=== PATIENT | female | born 1970 | race African-American/Black ===

== ENCOUNTER 2016-06-07 05:49 | Emergency (ER) | payer OTHER ==
--- NOTE | 2016-06-07 07:39 | ER Document Report ---
HPI - HPI Patient complains to provider of: cold symptoms Onset: Other - 5 days Onset/Duration: Persistent Quality of pain: Achy Pain Level: 3 Context: Patient presents with a five-day history of cough, congestion, sore throat and voice hoarseness. Patient denies any fever. 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 Associated Symptoms: Body/muscle aches, Chills, Nonproductive cough, Rhinnorhea , Sore throat. denies: Chest pain, Fever, Shortness of breath Exacerbated by: Denies Relieved by: Denies Similar symptoms previously: Yes Recently seen / treated by doctor: No - ROS ROS below otherwise negative: Yes Systems Reviewed and Negative: Yes All other systems reviewed and negative - CONSTITUTIONAL Constitutional: REPORTS: Chills. DENIES: Fever - EENT EENT: REPORTS: Sore Throat, Nasal Drainage-Clear, Congestion - CARDIOVASCULAR Cardiovascular: DENIES: Chest pain - RESPIRATORY Respiratory: REPORTS: Coughing. DENIES: Trouble Breathing - GASTROINTESTINAL Gastrointestinal: DENIES: Abdominal Pain, Nausea, Patient vomiting, Diarrhea - REPRODUCTIVE LMP: 2 Reproductive: DENIES: : - MUSCULOSKELETAL Musculoskeletal: DENIES: Extremity pain, Back Pain, Neck Pain - DERM Skin Color: Normal Skin Problems: None Past Medical History - General Information source: Patient - Social History Smoking Status: Never Smoker Chew tobacco use (# tins/day): No Frequency of alcohol use: None Drug Abuse: None Occupation: prison Family History: Arthritis, CAD, CVA, DM, Hyperlipidemia, Hypertension, Malignancy Patient has suicidal ideation: No Patient has homicidal ideation: No - Past Medical History Cardiac Medical History: Reports: Hx Hypercholesterolemia Denies: Hx Heart Attack, Hx Hypertension Pulmonary Medical History: Denies: Hx Asthma, Hx Bronchitis, Hx COPD, Hx Pneumonia Neurological Medical History: Denies: Hx Cerebrovascular Accident, Hx Seizures Endocrine Medical History: Reports: Hx Diabetes Mellitus Type 2 Renal/ Medical History: Denies: Hx Peritoneal Dialysis Musculoskeltal Medical History: Denies Hx Arthritis Skin Medical History: Reports Hx Cellulitis, Reports Hx MRSA Infectious Medical History: Reports: Hx MRSA Surgical Hx: Negative - Immunizations Immunizations up to date: Yes Hx Diphtheria, Pertussis, Tetanus Vaccination: Yes Hx Pneumococcal Vaccination: 12/23/09 Vertical Provider Document - CONSTITUTIONAL Agree With Documented VS: Yes Exam Limitations: No Limitations General Appearance: WD/WN, No Apparent Distress - INFECTION CONTROL TRAVEL OUTSIDE OF THE [place] IN LAST 30 DAYS: No - HEENT HEENT: Atraumatic, Normocephalic, Pharyngeal Tenderness, Pharyngeal Erythema. negative: Pharyngeal Exudate, Tympanic Membrane Red, Tympanic Membrane Bulging - NECK Neck: Normal Inspection, Supple. negative: Lymphadenopathy-Left, Lymphadenopathy-Right - RESPIRATORY Respiratory: No Respiratory Distress, Chest Non-Tender, Other - dry cough. negative: Rales, Rhonchi, Wheezing O2 Sat by Pulse Oximetry: 99 - CARDIOVASCULAR Cardiovascular: Regular Rate, Regular Rhythm, No Murmur - BACK Back: Normal Inspection. negative: CVA Tenderness-Right, CVA Tenderness-Left - MUSCULOSKELETAL/EXTREMETIES Musculoskeletal/Extremeties: NITHIN ACOSTA - NEURO Level of Consciousness: Awake, Alert, Appropriate - DERM Integumentary: Warm, Dry, No Rash Course - Re-evaluation Re-evalutation: 06/07/16 09:15 Discussed worsening signs or symptoms that patient should return immediately for. Patient verbalized understanding and agrees with plan of care. - Vital Signs Vital signs: Temp Pulse Resp BP Pulse Ox 97.9 F 86 16 126/63 H 99 06/07/16 05:57 06/07/16 05:57 06/07/16 06:10 06/07/16 05:57 06/07/16 05:57 - Laboratory Laboratory results interpreted by me: 06/07/16 09:15 Labs- Entire Visit 06/07/16 07:30 Group A Strep Rapid NEGATIVE - Diagnostic Test Radiology reviewed: Reports reviewed Discharge - Discharge Clinical Impression: Sore throat Upper respiratory infection Qualifiers: URI type: unspecified URI Qualified Code(s): J06.9 - Acute upper respiratory infection, unspecified Condition: Stable Disposition: HOME, SELF-CARE Instructions: Acetaminophen, Upper Respiratory Illness ([facility]), Sore Throat ([facility]) Additional Instructions: Return immediately for any new or worsening symptoms Followup with your primary care provider, call tomorrow to make a followup appointment Prescriptions: Benzonatate [Tessalon Perle 100 mg Capsule] 100 mg PO Q8HP PRN #20 cap PRN Reason: Guaifenesin/Pseudoephedrne HCl [Mucinex D ER Tablet] 1 each PO Q12 PRN #12 tab.er.12h PRN Reason: Naproxen [Naprosyn 250 Nmg Tablet] 1 tab PO BID #14 tablet Forms: Return to Work Referrals: CALIN BRUNNER NP [Primary Care Provider] - Follow up tomorrow
[2016-06-07 09:31] VITALS: BP 132/64
== END 2016-06-07 09:20 | disposition home or self-care (01) ==
LOC: ER 05:49
DX: J02.9 Acute pharyngitis, unspecified (principal); J06.9 Acute upper respiratory infection, unspecified; M79.1 Myalgia; E78.00 Pure hypercholesterolemia, unspecified; E11.9 Type 2 diabetes mellitus without complications; Z86.14 Personal history of Methicillin resistant Staphylococcus aureus infection
CPT/HCPCS: 71020; 87070; 87880; 99283

== ENCOUNTER 2016-12-20 07:54 | Outpatient (CLI) | payer OTHER ==
[~2016-12-20 07:54] MED LIST: IRON DEXTRAN COMPLEX 25 MG in NORMAL SALINE 100 ML IV PRN; IRON DEXTRAN COMPLEX 25 MG in SYRINGE, DISPOSABLE, 1 EACH IV PRN; IRON DEXTRAN COMPLEX 975 MG in NORMAL SALINE 500 ML IV PRN; IRON DEXTRAN INJ 100 MG/2 ML VIAL IV PRN; NORMAL SALINE 250 ML IV PRN
[2016-12-20] MEDS ORDERED: NORMAL SALINE IV PRN (08:15)
[2016-12-20] MEDS ORDERED: IRON DEXTRAN COMPLEX IV PRN (08:15)
[2016-12-20 09:32] VITALS: BP 150/87
== END 2016-12-20 11:41 | disposition home or self-care (01) ==
LOC: II 07:54 → 5TH 07:57 → II 11:41
PROVIDERS: ATTEND Internal Medicine
PROC: 3E033GC Introduction of Other Therapeutic Substance into Peripheral Vein, Percutaneous Approach (ICD-10-PCS; principal; 2016-12-20)
DX: D50.0 Iron deficiency anemia secondary to blood loss (chronic) (principal)
CPT/HCPCS: 96365; 96366; J1750; J7040; J3490

== ENCOUNTER 2017-08-12 09:23 | Emergency (ER) | payer OTHER ==
[2017-08-12] MEDS ORDERED: ONDANSETRON 4 MG TAB.RAPDIS PO ONE (09:38)
[2017-08-12] MEDS ORDERED: ASPIRIN 81 MG TABLET, CHEWABLE PO ONE (09:38)
[2017-08-12] MEDS ORDERED: NITROGLYCERIN 0.4 MG/TAB 25 TAB/BOTTLE SL PRN (09:40)
--- NOTE | 2017-08-12 09:40 | ER Document Report ---
ED Medical Screen (RME) - General Chief Complaint: Chest Pain Stated Complaint: CHEST PAIN Time Seen by Provider: 08/12/17 09:35 Notes: RAPID MEDICAL EVALUATION DISCLOSURE I have seen this patient as part of a Rapid Medical Evaluation and, if applicable, placed any initially appropriate orders. The patient will be seen and fully evaluated, including a full history and physical exam, by a provider ( in Main ED or Fast Track) when a room becomes available. 47-year-old female here with complaints of midsternal and lower sternal chest heaviness shortness of breath diaphoresis lightheadedness and nausea vomiting that started approximately 5-6 hours ago. The symptoms woke her up out of sleep. The pain is worse with lying flat. Pain is also worse with breathing but not exertion. She tried Tylenol with minimal relief. She currently has some of the chest heaviness. She denies any extremity swelling or prior history of DVT/PE. She does note that she had a [address] ride to [place] 2 months ago. TRAVEL OUTSIDE OF THE [place] IN LAST 30 DAYS: No - Related Data Allergies/Adverse Reactions: No Known Allergies Allergy (Verified 12/22/13 00:40) Past Medical History - Past Medical History Cardiac Medical History: Reports: Hx Coronary Artery Disease - cholesterol, Hx Hypercholesterolemia Denies: Hx Heart Attack, Hx Hypertension Pulmonary Medical History: Denies: Hx Asthma, Hx Bronchitis, Hx COPD, Hx Pneumonia Neurological Medical History: Denies: Hx Cerebrovascular Accident, Hx Seizures Endocrine Medical History: Reports: Hx Diabetes Mellitus Type 2 Renal/ Medical History: Denies: Hx Peritoneal Dialysis Musculoskeltal Medical History: Denies Hx Arthritis Skin Medical History: Reports Hx Cellulitis, Reports Hx MRSA Infectious Medical History: Reports: Hx MRSA Past Surgical History: Denies: Hx Hysterectomy - Immunizations Immunizations up to date: Yes Hx Diphtheria, Pertussis, Tetanus Vaccination: Yes Physical Exam - Vital signs Vitals: Temp Pulse Resp BP Pulse Ox 98.7 F 78 18 145/83 H 100 08/12/17 09:26 08/12/17 09:26 08/12/17 09:26 08/12/17 09:26 08/12/17 09:26 Course - Vital Signs Vital signs: Temp Pulse Resp BP Pulse Ox 98.7 F 78 18 145/83 H 100 08/12/17 09:26 08/12/17 09:26 08/12/17 09:26 08/12/17 09:26 08/12/17 09:26
--- NOTE | 2017-08-12 10:12 | RADIOLOGY REPORT (SQ) ---
EXAM DESCRIPTION: CHEST 2 VIEWS COMPLETED DATE/TIME: 08/12/2017 9:51 am REASON FOR STUDY: CP SOB COMPARISON: May 2016 EXAM PARAMETERS: NUMBER OF VIEWS: two views TECHNIQUE: Digital Frontal and Lateral radiographic views of the chest acquired. RADIATION DOSE: NA LIMITATIONS: none FINDINGS: LUNGS AND PLEURA: No opacities, masses or pneumothorax. No pleural effusion. MEDIASTINUM AND HILAR STRUCTURES: No masses or contour abnormalities. HEART AND VASCULAR STRUCTURES: Heart normal size. No evidence for failure. BONES: No acute findings. HARDWARE: None in the chest. OTHER: No other significant finding. IMPRESSION: NO ACUTE RADIOGRAPHIC FINDING IN THE CHEST. TECHNICAL DOCUMENTATION: JOB ID: [id number] [employer]- All Rights Reserved Reading location - IP/workstation name: [email or web address]
[2017-08-12 10:20] LABS: ABSOLUTE EOSINOPHILS # (AUTO) 0.1 10^3/uL (0.0-0.6); ABSOLUTE LYMPHOCYTES (AUTO) 0.9 10^3/uL (0.5-4.7); ABSOLUTE MONOCYTES (AUTO) 0.5 10^3/uL (0.1-1.4); ABSOLUTE NEUT (AUTO) 6.8 10^3/uL (1.7-8.2); BASOPHILS % (AUTO) 0.4 % (0-2); EOSINOPHILS % (AUTO) 1.6 % (0-6); HEMATOCRIT 34.3 % (36.0-47.0); HEMOGLOBIN 10.8 g/dL (12.0-15.5); LYMPHOCYTES % (AUTO) 10.7 % (13-45); MEAN CORPUSCULAR HEMOGLOBIN 24.8 pg (27.0-33.4); MEAN CORPUSCULAR HGB CONC 31.4 g/dL (32.0-36.0); MEAN CORPUSCULAR VOLUME 79 fl (80-97); MONOCYTES % (AUTO) 5.8 % (3-13); PLATELET COUNT 439 10^3/uL (150-450); RED BLOOD COUNT 4.35 10^6/uL (3.72-5.28); RED CELL DISTRIBUTION WIDTH 14.8 % (11.5-14.0); SEGMENTED NEUTROPHILS % (AUTO) 81.5 % (42-78); TOTAL CELLS COUNTED % (AUTO) 100 %; WHITE BLOOD COUNT 8.3 10^3/uL (4.0-10.5)
[2017-08-12] MEDS ORDERED: MAG HYDROX/AL HYDROX/SIMETH SUSP 30 ML UDCUP PO ONE (10:27)
[2017-08-12] MEDS ORDERED: METOCLOPRAMIDE HCL ORAL SOLN 10 MG/10 ML UDCUP PO ONE (10:27)
[2017-08-12] MEDS ORDERED: LIDOCAINE 2% VISCOUS SOLN 20 ML UDCUP PO ONE (10:27)
--- NOTE | 2017-08-12 10:37 | ER Document Report ---
ED General - General Chief Complaint: Chest Pain Stated Complaint: CHEST PAIN Time Seen by Provider: 08/12/17 09:35 TRAVEL OUTSIDE OF THE [place] IN LAST 30 DAYS: No - HPI Notes: 47-year-old female history of high cholesterol and "borderline" diabetes for which she controls with diet who presents with chest pain. Patient states she was awoken from sleep around 4 AM with a vague poorly described substernal chest heaviness. Initially said that it hurt worse when breathing but then later stated that it did not change much. No fever, chills or sweats, mild cough. No dyspnea. No use of exogenous estrogens. No lower extremity pain or swelling. No personal or family history of venous thromboembolic disease. Uncertain whether she has any first-degree relatives with a history of ACS but states that her mother had "heart failure" and in her early 50s. She has not had stress testing in the past. No other modifying factors, no other associated symptoms, no other provocative or palliative factors. - Related Data Allergies/Adverse Reactions: No Known Allergies Allergy (Verified 12/22/13 00:40) Past Medical History - Social History Smoking Status: Never Smoker Chew tobacco use (# tins/day): No Frequency of alcohol use: None Drug Abuse: None Family History: Arthritis, CAD, CVA, DM, Hyperlipidemia, Hypertension, Malignancy Patient has suicidal ideation: No Patient has homicidal ideation: No - Past Medical History Cardiac Medical History: Reports: Hx Hypercholesterolemia Denies: Hx Heart Attack, Hx Hypertension Pulmonary Medical History: Denies: Hx Asthma, Hx Bronchitis, Hx COPD, Hx Pneumonia Neurological Medical History: Denies: Hx Cerebrovascular Accident, Hx Seizures Endocrine Medical History: Reports: Hx Diabetes Mellitus Type 2 Renal/ Medical History: Denies: Hx Peritoneal Dialysis Musculoskeltal Medical History: Denies Hx Arthritis Skin Medical History: Reports Hx Cellulitis, Reports Hx MRSA Infectious Medical History: Reports: Hx MRSA Past Surgical History: Denies: Hx Hysterectomy - Immunizations Immunizations up to date: Yes Hx Diphtheria, Pertussis, Tetanus Vaccination: Yes Hx Pneumococcal Vaccination: 12/23/09 Review of Systems - Review of Systems Notes: Review of systems as in the history of present illness, otherwise negative. Physical Exam - Vital signs Vitals: Temp Pulse Resp BP Pulse Ox 98.7 F 78 18 145/83 H 100 08/12/17 09:26 08/12/17 09:26 08/12/17 09:26 08/12/17 09:26 08/12/17 09:26 - Notes Notes: General: Well developed . HEENT: Normocephalic, atraumatic. Pupils equal round reactive to light. No JVD. Chest: No trauma. Respiratory: Good air exchange, normal excursion. Cardiac: Regular rhythm. No murmurs or gallops. Abdomen: Soft, benign. Nondistended. Nontender. Back: No asymmetry or gross abnormality. Motor: Grossly normal power and tone. Neurologic: Alert, nonfocal. Cranial nerves II-12 are intact. Sensation intact. Vascular: Well perfused. Normal peripheral pulses. Skin: No petechiae or purpura. Course - Re-evaluation Re-evalutation: 08/12/17 10:37 Relatively well-appearing female with chest pain, certainly consider ACS, esophageal spasm or reflux, atypical chest pain. She is PE RC negative, would not pursue further workup for venous thromboembolic disease. Less likely pneumonia or pneumothorax. Plan to proceed with labs, analgesics, reassess. 08/12/17 12:38 Patient has done well throughout her ED course, is pain-free. She later indicated it was more of a lower epigastric and lower chest discomfort. I have a strong suspicion this may be related to GERD or reflux. Patient has a relatively low heart score of 3. Believe she is safe for discharge home, will follow close with the primary care physician tomorrow, return if worsening. Discharged home with prescription for Pepcid. ECG shows no evidence of acute ischemia. Labs are reviewed, CBC normal, biomarkers normal, d-dimer normal. 12 Lead ECG Analysis A 12 lead ECG is obtained and shows a sinus rhythm, normal QRS, normal QTC. There are no acute ischemic changes - Vital Signs Vital signs: Temp Pulse Resp BP Pulse Ox 98.7 F 78 18 145/83 H 100 08/12/17 09:26 08/12/17 09:26 08/12/17 09:26 08/12/17 09:26 08/12/17 09:26 - Laboratory Result Diagrams: 08/12/17 09:55 08/12/17 09:55 Laboratory results interpreted by me: 08/12/17 08/12/17 09:55 09:55 Hgb 10.8 L Hct 34.3 L MCV 79 L MCH 24.8 L MCHC 31.4 L RDW 14.8 H Seg Neutrophils % 81.5 H Lymphocytes % 10.7 L Glucose 114 H Discharge - Discharge Clinical Impression: Chest pain Qualifiers: Chest pain type: unspecified Qualified Code(s): R07.9 - Chest pain, unspecified Condition: Good Disposition: HOME, SELF-CARE Instructions: Chest Pain of Unclear Cause ([facility]) Additional Instructions: See regular doctor within 24 hrs Prescriptions: Famotidine [Pepcid 40 mg Tablet] 40 mg PO QHS 30 Days tablet Referrals: CALIN BRUNNER PIPE OR STEAM FITTER FURNACE INSTALLER [Primary Care Provider] - Follow up as needed
[2017-08-12 10:44] LABS: ALANINE AMINOTRANSFERASE 35 U/L (9-52); ALBUMIN 4.4 g/dL (3.5-5.0); ALKALINE PHOSPHATASE 78 U/L (38-126); ANION GAP 13 (5-19); ASPARTATE AMINO TRANSFERASE 33 U/L (14-36); BILIRUBIN,DIRECT 0.3 mg/dL (0.0-0.4); BILIRUBIN,TOTAL 0.3 mg/dL (0.2-1.3); BLOOD UREA NITROGEN 7 mg/dL (7-20); CALCIUM 9.7 mg/dL (8.4-10.2); CARBON DIOXIDE 27 mmol/L (22-30); CHLORIDE 101 mmol/L (98-107); GLUCOSE 114 mg/dL (75-110); LIPASE 178.8 U/L (23-300); POTASSIUM 3.9 mmol/L (3.6-5.0); SODIUM 141.3 mmol/L (137-145)
[2017-08-12 12:43] VITALS: BP 124/77
--- NOTE | 2017-08-13 07:40 | EKG REPORT ---
SEVERITY:- NORMAL ECG - SINUS RHYTHM : Confirmed by: Derek Mcnally MD 13-Aug-2017 07:38:17
== END 2017-08-12 12:52 | disposition home or self-care (01) ==
LOC: ER 09:23
DX: R07.89 Other chest pain (principal); R19.8 Other specified symptoms and signs involving the digestive system and abdomen
CPT/HCPCS: 93005; 99285; 36415; 83690; 85025; 80053; 84484; 85379; 71046; 93010; S0119; J3490

== ENCOUNTER → 2019-08-19 | Outpatient (CLI) | payer OTHER ==
--- NOTE | 2019-08-19 12:11 | WOMENS IMAGING REPORT ---
EXAM DESCRIPTION: 3D SCREENING MAMMO BILAT IMAGES COMPLETED DATE/TIME: 08/19/2019 9:41 am REASON FOR STUDY: Z12.31 SCREENING MAMMO Z12.31 ENCNTR SCREEN MAMMOGRAM FOR MALIGNANT NEOPLASM OF B RE COMPARISON: Multiple since 2012 EXAM PARAMETERS: Views: Standard craniocaudal and mediolateral oblique views of each breast recorded using digital acquisition and breast tomosynthesis. Read with the assistance of CAD. .[facility] - cookdinner Associate Professor Of Communication Version 9.2 LIMITATIONS: None. FINDINGS: No suspicious masses, suspicious calcifications or architectural distortion. No areas of c oncern. IMPRESSION: NEGATIVE MAMMOGRAM. BIRADS 1. BREAST DENSITY: a. The breasts are almost entirely fatty. BIRAD: ASSESSMENT: 1 NEGATIVE RECOMMENDATION: ROUTINE SCREENING COMMENT: The patient has been notified of the results by letter per MQSA requirements. Additional no tification policies are in place for contacting patient with suspicious or incomplete findings. Quality ID #[id number]: The [employer] recommends an annual screening mammogram for women aged 40 years or over. This facility utilizes a reminder system to ensure that all patients receive reminder letters, and/or direct phone calls for appointments. This includes reminders for routine scr eening mammograms, diagnostic mammograms, or other Breast Imaging Interventions when appropriate. Th is patient will be placed in the appropriate reminder system. TECHNICAL DOCUMENTATION: FINDING NUMBER: (1) ASSESSMENT: (1) JOB ID: [id number] 2010 [employer]- All Rights Reserved Reading location - IP/workstation name: [email or web address]
== END ==
LOC: WI 09:00
PROVIDERS: ATTEND Nurse Practitioner Primary Care
DX: Z12.31 Encounter for screening mammogram for malignant neoplasm of breast (principal)
CPT/HCPCS: 77063; 77067

== ENCOUNTER 2019-08-24 18:11 | Inpatient (IN) | payer OTHER ==
--- NOTE | 2019-08-24 18:35 | ER Document Report ---
ED Medical Screen (RME) - General Chief Complaint: Chest Pain Stated Complaint: CHEST PAIN Time Seen by Provider: 08/24/19 18:28 Primary Care Provider: CALIN BRUNNER NP [Primary Care Provider] - Follow up as needed Mode of Arrival: Ambulatory Information source: Patient Notes: 49-year-old female patient presenting to the emergency department 2-day history of chest pain. Patient reports pain feels like a pressure in the middle of her chest but radiates down into her abdomen. Does not radiate anywhere else. She reports associated nausea with vomiting. She also reports associated shortness of breath and diaphoresis. She does have a history of acid reflux, states this does not feel the same. Heart sounds S1-S2 present, no ectopy noted. Lung sounds clear and equal bilaterally. I have greeted and performed a rapid initial assessment of this patient. A comprehensive ED assessment and evaluation of the patient, analysis of test results and completion of the medical decision making process will be conducted by additional ED providers. I have specifically instructed the patient or family members with the patient to immediately return to any nursing staff should anything change in the patient's condition or with their chief complaint. TRAVEL OUTSIDE OF THE [place] IN LAST 30 DAYS: No - Related Data Allergies/Adverse Reactions: No Known Allergies Allergy (Verified 08/24/19 18:28) Past Medical History - Social History Frequency of alcohol use: None Drug Abuse: None - Past Medical History Cardiac Medical History: Reports: Hx Coronary Artery Disease - cholesterol, Hx Hypercholesterolemia Denies: Hx Heart Attack, Hx Hypertension Pulmonary Medical History: Denies: Hx Asthma, Hx Bronchitis, Hx COPD, Hx Pneumonia Neurological Medical History: Denies: Hx Cerebrovascular Accident, Hx Seizures Endocrine Medical History: Reports: Hx Diabetes Mellitus Type 2 Renal/ Medical History: Denies: Hx Peritoneal Dialysis Musculoskeltal Medical History: Denies Hx Arthritis Skin Medical History: Reports Hx Cellulitis, Reports Hx MRSA Infectious Medical History: Reports: Hx MRSA Past Surgical History: Denies: Hx Hysterectomy - Immunizations Immunizations up to date: Yes Hx Diphtheria, Pertussis, Tetanus Vaccination: Yes Physical Exam - Vital signs Vitals: Temp Pulse Resp BP Pulse Ox 98.9 F 104 H 20 127/71 H 100 08/24/19 18:25 08/24/19 18:25 08/24/19 18:25 08/24/19 18:25 08/24/19 18:25 Course - Vital Signs Vital signs: Temp Pulse Resp BP Pulse Ox 98.9 F 104 H 20 127/71 H 100 08/24/19 18:28 08/24/19 18:25 08/24/19 18:25 08/24/19 18:25 08/24/19 18:25 Doctor's Discharge - Discharge Referrals: CALIN BRUNNER HOSPICE NURSE PRACTITIONER [Primary Care Provider] - Follow up as needed
[2019-08-24 19:07] LABS: HEMATOCRIT 35.5 % (36.0-47.0); HEMOGLOBIN 11.3 g/dL (12.0-15.5); MEAN CORPUSCULAR HEMOGLOBIN 25.8 pg (27.0-33.4); MEAN CORPUSCULAR HGB CONC 31.9 g/dL (32.0-36.0); MEAN CORPUSCULAR VOLUME 81 fl (80-97); PLATELET COUNT 362 10^3/uL (150-450); RED BLOOD COUNT 4.39 10^6/uL (3.72-5.28); RED CELL DISTRIBUTION WIDTH 14.5 % (11.5-14.0); WHITE BLOOD COUNT 19.6 10^3/uL (4.0-10.5)
--- NOTE | 2019-08-24 19:10 | RADIOLOGY REPORT (SQ) ---
EXAM DESCRIPTION: CHEST 2 VIEWS IMAGES COMPLETED DATE/TIME: 08/24/2019 7:02 pm REASON FOR STUDY: chest pain COMPARISON: 08/12/2017 EXAM PARAMETERS: NUMBER OF VIEWS: two views TECHNIQUE: Digital Frontal and Lateral radiographic views of the chest acquired. RADIATION DOSE: NA LIMITATIONS: none FINDINGS: LUNGS AND PLEURA: No opacities, masses or pneumothorax. No pleural effusion. MEDIASTINUM AND HILAR STRUCTURES: No masses or contour abnormalities. HEART AND VASCULAR STRUCTURES: Heart normal size. No evidence for failure. BONES: No acute findings. HARDWARE: None in the chest. OTHER: No other significant finding. IMPRESSION: NO ACUTE RADIOGRAPHIC FINDING IN THE CHEST. TECHNICAL DOCUMENTATION: JOB ID: [id number] 2010 [employer]- All Rights Reserved Reading location - IP/workstation name: [email or web address]
[2019-08-24 19:24] LABS: ABSOLUTE LYMPHOCYTES# (MANUAL) 1.4 10^3/uL (0.5-4.7); ABSOLUTE MONOCYTES # (MANUAL) 0.6 10^3/uL (0.1-1.4); BASOPHILS % (MANUAL) 0 % (0-2); EOSINOPHILS % (MANUAL) 0 % (0-6); LYMPHOCYTES % (MANUAL) 7 % (13-45); MONOCYTES % (MANUAL) 3 % (3-13); SEGMENTED NEUTROPHILS % (MAN) 90 % (42-78); TOTAL CELLS COUNTED 100
[2019-08-24 19:25] LABS: ALBUMIN 4.1 g/dL (3.5-5.0); ALKALINE PHOSPHATASE 113 U/L (38-126); ANION GAP 13 (5-19); ASPARTATE AMINO TRANSFERASE 56 U/L (14-36); BILIRUBIN,DIRECT 0.3 mg/dL (0.0-0.4); BILIRUBIN,TOTAL 1.1 mg/dL (0.2-1.3); BLOOD UREA NITROGEN 18 mg/dL (7-20); CALCIUM 9.5 mg/dL (8.4-10.2); CARBON DIOXIDE 25 mmol/L (22-30); CHLORIDE 97 mmol/L (98-107); GLUCOSE 180 mg/dL (75-110); POTASSIUM 3.2 mmol/L (3.6-5.0); TOTAL PROTEIN 8.1 g/dL (6.3-8.2)
[2019-08-24 19:27] LABS: ANISOCYTOSIS SLIGHT; OVALOCYTES SLIGHT; PLATELET COMMENT ADEQUATE; POIKILOCYTOSIS SLIGHT
--- NOTE | 2019-08-24 19:52 | ER Document Report ---
ED Cardiac - General Chief Complaint: Chest Pain Stated Complaint: CHEST PAIN Time Seen by Provider: 08/24/19 18:28 Primary Care Provider: CALIN BRUNNER NP [Primary Care Provider] - Follow up as needed Mode of Arrival: Ambulatory Information source: Patient TRAVEL OUTSIDE OF THE [place] IN LAST 30 DAYS: No - HPI Notes: Patient presents complaining of substernal chest pain. She states this pain is been going on for 2 to 3 days. Nothing makes it better or worse. It last for minutes at a time she states. She also has some abdominal soreness. She states she had one episode of vomiting on Saturday but none since. She has had some nausea. Today she had an episode of dizziness cold sweats and shortness of breath with the pain. She states she is never had any type of cardiac evaluation. No previous history of surgeries. She states she has high cholesterol but she does not have any diabetes or high blood pressure. She states that she does not take any type of hormones. She does not smoke. She has never had a DVT or pulmonary embolism. She denies any abdominal surgeries. She denies any family history of heart disease. No family history of DVTs or PEs known. Nothing makes the pain better or worse. The pain does not radiate. It is mild to moderate in intensity. - Related Data Allergies/Adverse Reactions: No Known Allergies Allergy (Verified 08/24/19 18:28) Past Medical History - General Information source: Patient - Social History Smoking Status: Never Smoker Frequency of alcohol use: None Drug Abuse: None Family History: Arthritis, CAD, CVA, DM, Hyperlipidemia, Hypertension, Malignancy Patient has homicidal ideation: No - Past Medical History Cardiac Medical History: Reports: Hx Coronary Artery Disease - cholesterol, Hx Hypercholesterolemia Denies: Hx Heart Attack, Hx Hypertension Pulmonary Medical History: Denies: Hx Asthma, Hx Bronchitis, Hx COPD, Hx Pneumonia Neurological Medical History: Denies: Hx Cerebrovascular Accident, Hx Seizures Endocrine Medical History: Reports: Hx Diabetes Mellitus Type 2 Renal/ Medical History: Denies: Hx Peritoneal Dialysis Musculoskeletal Medical History: Denies Hx Arthritis Skin Medical History: Reports Hx Cellulitis, Reports Hx MRSA Infectious Medical History: Reports: Hx MRSA Past Surgical History: Denies: Hx Hysterectomy - Immunizations Immunizations up to date: Yes Hx Diphtheria, Pertussis, Tetanus Vaccination: Yes Hx Pneumococcal Vaccination: 12/23/09 Review of Systems - Review of Systems Constitutional: denies: Chills, Fever Cardiovascular: Chest pain. denies: Palpitations Respiratory: Short of breath. denies: Cough -: Yes All other systems reviewed and negative Physical Exam - Vital signs Vitals: Temp Pulse Resp BP Pulse Ox 98.9 F 104 H 20 127/71 H 100 08/24/19 18:25 08/24/19 18:25 08/24/19 18:25 08/24/19 18:25 08/24/19 18:25 Interpretation: Normal - General General appearance: Appears well, Alert - HEENT Head: Normocephalic, Atraumatic Eyes: Normal Pupils: PERRL - Respiratory Respiratory status: No respiratory distress Chest status: Nontender Breath sounds: Normal Chest palpation: Normal - Cardiovascular Rhythm: Regular - not tachy on exam Heart sounds: Normal auscultation Murmur: No - Abdominal Inspection: Normal Distension: No distension Bowel sounds: Normal Tenderness: Nontender Organomegaly: No organomegaly - Back Back: Normal, Nontender - Extremities General upper extremity: Normal inspection, Nontender, Normal color, Normal ROM, Normal temperature General lower extremity: Normal inspection, Nontender, Normal color, Normal ROM, Normal temperature, Normal weight bearing. No: Miguel's sign - Neurological Neuro grossly intact: Yes Cognition: Normal Orientation: AAOx4 [employer] [place] [place] Coma Scale Eye Opening: Spontaneous [employer] [place] Coma Scale Verbal: Oriented [place] Coma Scale Motor: Obeys Commands [place] Coma Scale Total: 15 Speech: Normal Motor strength normal: LUE, RUE, LLE, RLE Sensory: Normal - Psychological Associated symptoms: Normal affect, Normal mood - Skin Skin Temperature: Warm Skin Moisture: Dry Skin Color: Normal Course - Re-evaluation Re-evalutation: 08/24/19 21:38 Patient presents with epigastric and central chest pain. She has had some GI symptoms that consist of nausea and vomiting. She has not had significant symp toms that would suggest a respiratory infection. CT shows inflammation around the gallbladder with thick wall. She does have a white count of 19.6 thousand with some minimally elevated liver function test. The clinical picture does seem consistent with a possible cholecystitis. I have paged the surgicalist who will see the patient in consultation for admission. - Vital Signs Vital signs: Temp Pulse Resp BP Pulse Ox 98.9 F 104 H 20 105/72 97 08/24/19 18:28 08/24/19 18:25 08/24/19 21:00 08/24/19 20:01 08/24/19 21:00 - Laboratory Result Diagrams: 08/24/19 18:42 08/24/19 18:42 Laboratory results interpreted by me: 08/24/19 08/24/19 18:42 18:42 WBC 19.6 H Hgb 11.3 L Hct 35.5 L MCH 25.8 L MCHC 31.9 L RDW 14.5 H Seg Neuts % (Manual) 90 H Lymphocytes % (Manual) 7 L Abs Neuts (Manual) 17.6 H Sodium 134.9 L Potassium 3.2 L Chloride 97 L Creatinine 1.64 H Est GFR ( Amer) 40 L Est GFR (MDRD) Non-Af 33 L Glucose 180 H AST 56 H ALT 72 H - Diagnostic Test Radiology reviewed: Image reviewed, Reports reviewed - EKG Interpretation by Me EKG shows normal: Sinus rhythm Rate: Tachycardia - 102 Rhythm: NSR [place]/QRS: No: Right axis deviation, Left axis deviation Discharge - Discharge Clinical Impression: Acute cholecystitis Condition: Stable Disposition: ADMITTED INPATIENT Admitting Provider: Surgicalist Unit Admitted: Surgical Floor Referrals: CALIN BRUNNER NP [Primary Care Provider] - Follow up as needed
--- NOTE | 2019-08-24 21:24 | RADIOLOGY REPORT (SQ) ---
EXAM DESCRIPTION: Contrast-enhanced CT pulmonary angiogram of the chest. CLINICAL HISTORY: 49 years Female; cp/abd pain/sob/elev wbc TECHNIQUE: CT angiogram of the chest, abdomen and pelvis using intravenous contrast.. MIP reconstructions were performed. All CT scans at this facility use dose modulation, iterative reconstruction, and/or weight based dosing when appropriate to reduce radiation dose to as low as reasonably achievable. COMPARISON: None. FINDINGS: Chest: Vascular: Central pulmonary arteries are patent. No evidence of pulmonary embolism. Thoracic aorta is of normal caliber. No dissection or aneurysm. Great vessels are normal. Left vertebral artery arises directly from the aortic arch. Lungs: Subtle groundglass opacification is identified in the perihilar and lower lobes bilaterally in a dependent fashion posteriorly. Findings are nonspecific. No pleural effusion. No pneumothorax. No pulmonary nodules or masses. Mediastinum: In the left thyroid lobe is a heterogeneously enhancing mass measuring 2.9 cm. Heart size is normal. Small sliding hiatal hernia is present. No mediastinal or hilar lymphadenopathy. There is a small amount of soft tissue in the anterior mediastinum which may represent residual thymic tissue. Bones and soft tissues: Minimal endplate spondylosis in the thoracic spine. No destructive bone lesions. No acute fracture. Nonspecific axillary lymphadenopathy is seen bilaterally. In the right axilla lymph nodes measure 2 cm and in the left axilla lymph nodes measure up to 2.1 cm. ABDOMEN: Aorta: Normal. Celiac: Normal SMA: Normal Left renal: Normal Right renal: Normal BEKA: Normal Liver: Diffuse fatty infiltration of the liver is seen. There is heterogeneous enhancement in the liver adjacent to the gallbladder fossa and the gallbladder wall appears thickened. There is inflammation seen adjacent to the gallbladder. In the appropriate clinical scenario this would be consistent with acute cholecystitis. No biliary dilatation. Hepatic arteries are patent. Portal vein and hepatic veins are patent. No mass lesions. Pancreas:Within normal limits Spleen:Within normal limits Kidneys: Kidneys are normal in size shape and position. No stones or hydronephrosis. No acute process. Symmetric renal enhancement is identified. On delayed images there is symmetric contrast excretion. Adrenal glands:Within normal limits GI: The bowel is of normal caliber. No obstruction. No focal inflammation. appendix:The appendix appears normal. Abdominal wall: Unremarkable Retroperitoneal: No mass or lymphadenopathy General: No free air. No free fluid. Bones: No acute bone findings. Bladder: The bladder is mostly empty Pelvis: Possible small heterogeneously enhancing fibroid in the uterus and fundus. This area measures approximately 18 mm. PELVIS: Right iliacs: Common, internal and external iliac arteries are normal. Common femoral artery is normal. Left iliacs: Common, internal and external iliac arteries are normal. Comment subtle artery is normal. IMPRESSION: 1. Scattered subtle groundglass opacification in the perihilar and lower lobes. This is nonspecific. 2.2.9 cm incidental thyroid nodule. Recommend thyroid US. Reference: J Am Eddi Radiol. 2015 b;12(2): 143-50. 3. Nonspecific axillary lymphadenopathy. 4. No abnormality of the thoracic aorta or great vessels. 5. Marked fatty infiltration of the liver. 6. Abnormal appearance of the gallbladder suggesting acute cholecystitis. No biliary dilatation. 7. No vascular abnormality in the chest, abdomen or pelvis.
[2019-08-24] MEDS ORDERED: PIPERACILLIN/TAZOBACTAM 3.375 GM VIAL IV ONE (21:37)
[2019-08-24] MEDS ORDERED: NORMAL SALINE 1000 ML 1,000 ML IV ONE (21:38)
[2019-08-24 22:31] LABS: APPEARANCE,URINE TURBID; BILIRUBIN,URINE NEGATIVE (NEGATIVE); COLOR,URINE RED; GLUCOSE, URINE NEGATIVE (NEGATIVE); KETONES,URINE NEGATIVE (NEGATIVE); PROTEIN,URINE 100 mg/dL (NEGATIVE); URINE SPECIFIC GRAVITY 1.031
--- NOTE | 2019-08-24 22:34 | EKG REPORT ---
SEVERITY:- BORDERLINE ECG - SINUS TACHYCARDIA PROBABLE LEFT ATRIAL ABNORMALITY BORDERLINE T WAVE ABNORMALITIES : Confirmed by: Latoya Redman 24-Aug-2019 22:33:15
--- NOTE | 2019-08-24 22:56 | RADIOLOGY REPORT (SQ) ---
EXAM DESCRIPTION: US ABDOMEN LIMITED COMPLETED DATE/TME: 08/24/2019 21:50 CLINICAL HISTORY: 49 years, Female, ruq pain COMPARISON: Prior CT from earlier the same day. TECHNIQUE: Axial 2-D grayscale images of the abdomen were acquired. Doppler was utilized. LIMITATIONS: None. FINDINGS: Pancreas is obscured by overlying bowel gas artifact. Visualized portions of the abdominal aorta and IVC appear normal. Liver is diffusely echogenic. Antegrade flow is documented within the main portal vein. Liver length is 15.6 cm. No focal liver lesions. Gallbladder wall thickness measures 6 mm. Gallstones are noted. Sonographic Carcamo sign was negative. Common bile duct diameter measures 5 mm. Right kidney measures 9.9 x 5.1 x 5.4 cm in size. No gross evidence of hydronephrosis. IMPRESSION: Cholelithiasis with thickened gallbladder wall. Negative sonographic Carcamo sign. However, given the presence of pericholecystic inflammatory stranding seen on the recent CT performed earlier the same day, these findings are most suspicious for cholecystitis. Echogenic liver, suggestive of hepatic steatosis. copyright 2010 [facility] [employer]- All Rights Reserved
--- NOTE | 2019-08-24 23:58 | Progress Note ---
Provider Note Provider Note: Patient turned over to me pending ultrasound and repeat discussion with surgery. Ultrasound shows gallstones, thickened gallbladder wall, and pericholecystic fluid consistent with cholecystitis. Called Dr. Hutchins back with these findings and he is excepted her to his service and asked for her to be placed n.p.o. which I have ordered.
[2019-08-25] MEDS ORDERED: ONDANSETRON HCL INJ/PF 4 MG/2 ML SDV IV PRN ×2 (01:38→13:13)
[2019-08-25] MEDS ORDERED: GLUCAGON,HUMAN RECOMB 1 MG INJ SUBCUT PRN (01:39)
[2019-08-25] MEDS ORDERED: DEXTROSE 40% GEL 15 GM TUBE PO PRN ×2 (01:39)
[2019-08-25] MEDS ORDERED: DEXTROSE 5%-LACTATED RINGERS 1,000 ML IV PRN ×2 (01:39→01:47)
[2019-08-25] MEDS ORDERED: DEXTROSE 50%-WATER 25 GM/50 ML DISP.SYRIN IV PRN ×2 (01:39)
[2019-08-25] MEDS ORDERED: PIPERACILLIN/TAZOBACTAM 3.375 GM VIAL IV PRN (02:00)
[2019-08-25] MEDS ORDERED: PIPERACILLIN/TAZOBACTAM 3.375 GM VIAL IV ONE (04:47)
[2019-08-25] MEDS ORDERED: ROCURONIUM BROMIDE INJ 50 MG/5 ML VIAL IV ONE (05:00)
[2019-08-25] MEDS ORDERED: KETOROLAC TROMETHAMINE 60 MG/2 ML SDV ONE (05:00)
[2019-08-25] MEDS ORDERED: NEOSTIGMINE METHYLSULFATE 10 MG/10 ML VIAL ONE (05:00)
[2019-08-25] MEDS ORDERED: GLYCOPYRROLATE 1 MG/5 ML VIAL ONE (05:00)
[2019-08-25] MEDS ORDERED: ONDANSETRON HCL INJ/PF 4 MG/2 ML SDV ONE (05:00)
[2019-08-25] MEDS ORDERED: DEXAMETHASONE SOD PHOSPHATE INJ 4 MG/1 ML VIAL ONE (05:00)
[2019-08-25] MEDS: PIPERACILLIN SODIUM/TAZOBACTAM 3.375 GM in NORMAL SALINE 100 ML IV SCH ×4 (05:35→21:06)
[2019-08-25 05:38] LABS: ABSOLUTE EOSINOPHILS # (AUTO) 0.2 10^3/uL (0.0-0.6); ABSOLUTE NEUT (AUTO) 13.1 10^3/uL (1.7-8.2); BASOPHILS % (AUTO) 0.2 % (0-2); EOSINOPHILS % (AUTO) 1.2 % (0-6); HEMATOCRIT 29.8 % (36.0-47.0); HEMOGLOBIN 9.9 g/dL (12.0-15.5); LYMPHOCYTES % (AUTO) 6.4 % (13-45); MEAN CORPUSCULAR HEMOGLOBIN 26.2 pg (27.0-33.4); MEAN CORPUSCULAR HGB CONC 33.2 g/dL (32.0-36.0); MEAN CORPUSCULAR VOLUME 79 fl (80-97); MONOCYTES % (AUTO) 6.7 % (3-13); PLATELET COUNT 310 10^3/uL (150-450); RED BLOOD COUNT 3.77 10^6/uL (3.72-5.28); RED CELL DISTRIBUTION WIDTH 14.6 % (11.5-14.0); SEGMENTED NEUTROPHILS % (AUTO) 85.5 % (42-78); TOTAL CELLS COUNTED % (AUTO) 100 %; WHITE BLOOD COUNT 15.3 10^3/uL (4.0-10.5)
[2019-08-25 05:57] LABS: ALBUMIN 3.6 g/dL (3.5-5.0); ALKALINE PHOSPHATASE 84 U/L (38-126); ANION GAP 7 (5-19); ASPARTATE AMINO TRANSFERASE 40 U/L (14-36); BILIRUBIN,DIRECT 0.1 mg/dL (0.0-0.4); BILIRUBIN,TOTAL 0.7 mg/dL (0.2-1.3); BLOOD UREA NITROGEN 16 mg/dL (7-20); CARBON DIOXIDE 30 mmol/L (22-30); CHLORIDE 99 mmol/L (98-107); GLUCOSE 135 mg/dL (75-110); POTASSIUM 3.3 mmol/L (3.6-5.0)
[2019-08-25] MEDS ORDERED: ACETAMINOPHEN 1,000 MG/100 ML RTUPB IV ONE (06:45)
[2019-08-25] MEDS ORDERED: KETOROLAC TROMETHAMINE INJ/PF 30 MG/1 ML SDV IV ONE (07:00)
[2019-08-25] MEDS ORDERED: MIDAZOLAM 2 MG/2 ML INJ ONE (07:11)
[2019-08-25] MEDS ORDERED: HYDROMORPHONE HCL INJ/PF 2 MG/ML AMPULE ONE (07:11)
[2019-08-25] MEDS ORDERED: PROPOFOL INJ 200 MG/20 ML VIAL IV ONE (07:11)
[2019-08-25] MEDS ORDERED: FENTANYL CITRATE INJ/PF 100 MCG/2 ML AMPUL ONE (07:11)
[2019-08-25] MEDS ORDERED: LIDOCAINE 2% INJ-PF (20 MG/ML) 10 ML AMPUL ONE (07:11)
[2019-08-25] MEDS ORDERED: BUPIVACAINE HCL 0.25% /EPINEPHRINE INJ/PF 30 ML SDV ONE (09:16)
[2019-08-25] MEDS ORDERED: NALOXONE HCL INJ/PF 0.4 MG/1 ML SDV ONE (12:13)
[2019-08-25] MEDS: FENTANYL CITRATE INJ/PF 100 MCG/2 ML AMPUL ONE ×2 (12:30→12:35)
[2019-08-25] MEDS ORDERED: MORPHINE SULFATE 10 MG/ML INJ IV PRN (13:13)
[2019-08-25] MEDS ORDERED: PROMETHAZINE HCL INJ 25 MG/1 ML VIAL IV PRN (13:13)
[2019-08-25] MEDS ORDERED: DIPHENHYDRAMINE HCL 50 MG/ML VIAL IV PRN (13:13)
[2019-08-25] MEDS ORDERED: OXYCODONE-ACETAMINOPHEN 5-325 MG TABLET PO PRN ×2 (13:13)
[2019-08-25] MEDS ORDERED: MEPERIDINE HCL/PF INJ 25 MG/1 ML DISP.SYRIN IV PRN (13:13)
[2019-08-25] MEDS ORDERED: FENTANYL CITRATE INJ/PF 100 MCG/2 ML AMPUL IV PRN ×3 (13:13)
--- NOTE | 2019-08-25 14:25 | Operative Report ---
Operative Report DATE OF SURGERY: 08/25/19 PREOPERATIVE DIAGNOSIS: Acute cholecystitis. Cholelithiasis POSTOPERATIVE DIAGNOSIS: Same OPERATION: Laparoscopic cholecystectomy SURGEON: ELLA MURPHY ANESTHESIA: GA TISSUE REMOVED OR ALTERED: Gallbladder COMPLICATIONS: None ESTIMATED BLOOD LOSS: 100 cc QUANTITATIVE BLOOD LOSS: 100 INTRAOPERATIVE FINDINGS: Thickened gallbladder wall to about 0.6 mm with at least 2 large stones about 2.5 cm each. There is no plane to dissect the gallbladder from the liver because of the markedly thickened gallbladder wall. PROCEDURE: After adequate general anesthesia the patient was placed in supine position and the abdomen prepped and draped in the usual sterile fashion. Appropriate timeout was then called. Infraumbilical incision is made in the fascia identified and divided and some trocar inserted to the abdominal cavity. 2 stay sutures were placed on the fascia on each side prior to placement of the trocar. CO2 insufflated and 3 other trochars replaced at 12 mm in the subxiphoid and two 5 mm in the right upper quadrant. There was some difficulty visualizing the gallbladder because of patient quite obese. A another incision made in the left upper quadrant and a 5 mm trocar inserted. A fan retractor was then placed through this trocar to have better visualization of the gallbladder was was noted to be markedly thickened. An attempt was made to empty the gallbladder but only about 5 cc of bile was removed. The gallbladder was eventually grasped with grasper from the OB department where it has 2 sharp prongs. The gallbladder unable to be dissected because it was noted to be markedly thickened wall and because of this an attempt was done to do either retrograde dissection. The gallbladder was practically pulled out and dissected from the liver. The gallbladder. The cystic duct was partially divided with the use of the cautery. The junction of the gallbladder and cystic duct was noted and couple of hemoclips placed over the cystic duct area and the gallbladder divided began the second clip. The gallbladder was further divided with a use of harmonic nathanael and cautery. We had a tough time during the dissection because of visibility and the gallbladder being very adherent to the gallbladder to the liver and no plane of dissection. The gallbladder noted to have stone that is close to the cystic duct that was partially exposed exposed. The gallbladder was then placed in an Endobag and pulled out through the umbilical port by slightly enlarging the fascial opening with a scissors. The gallbladder bed was then inspected and irrigated with saline solution. No evidence of active bleeding noted however 2 pieces of Surgicel were placed to aid in the event of hemostasis. At 215 Persian round drains were placed on the trocar site on the right lower lateral area was placed into the liver bed and another 1 on on the left trocar site where the liver retractor was. Drains were anchored to the skin with 2-0 nylon. Bladder trochars were then removed and CO2 allowed to come out of this trocar sites. The fascial defect in the infraumbilical area was closed with [id number] suture using 0 Vicryl and 2 stay sutures tied together for better closure. Marcaine with epinephrine was then used to inject the fascia and the incision sites. All the skin incisions were then closed with running subcuticular closure using 4-0 Vicryl undyed. Steri-Strips placed over the operative sites. Needle instrument sponge count were all correct. Patient brought to the recovery room in satisfactory condition.
[2019-08-25] MEDS: FAMOTIDINE INJ/PF 20 MG/2 ML SDV IV SCH ×2 (14:29→21:05)
[2019-08-25] MEDS: MORPHINE SULFATE 10 MG/ML INJ IV PRN ×2 (16:35→21:05)
[2019-08-26] MEDS: PIPERACILLIN SODIUM/TAZOBACTAM 3.375 GM in NORMAL SALINE 100 ML IV SCH ×4 (04:17→20:39)
[2019-08-26 05:50] LABS: ABSOLUTE MONOCYTES (AUTO) 0.8 10^3/uL (0.1-1.4); ABSOLUTE NEUT (AUTO) 11.3 10^3/uL (1.7-8.2); BASOPHILS % (AUTO) 0.2 % (0-2); EOSINOPHILS % (AUTO) 0.1 % (0-6); HEMOGLOBIN 8.7 g/dL (12.0-15.5); LYMPHOCYTES % (AUTO) 7.3 % (13-45); MEAN CORPUSCULAR HEMOGLOBIN 25.9 pg (27.0-33.4); MEAN CORPUSCULAR HGB CONC 32.3 g/dL (32.0-36.0); MEAN CORPUSCULAR VOLUME 80 fl (80-97); MONOCYTES % (AUTO) 6.4 % (3-13); PLATELET COUNT 358 10^3/uL (150-450); RED BLOOD COUNT 3.36 10^6/uL (3.72-5.28); RED CELL DISTRIBUTION WIDTH 14.5 % (11.5-14.0); TOTAL CELLS COUNTED % (AUTO) 100 %; WHITE BLOOD COUNT 13.1 10^3/uL (4.0-10.5)
[2019-08-26 06:22] LABS: ALBUMIN 3.4 g/dL (3.5-5.0); ALKALINE PHOSPHATASE 88 U/L (38-126); ANION GAP 11 (5-19); ASPARTATE AMINO TRANSFERASE 118 U/L (14-36); BILIRUBIN,DIRECT 0.1 mg/dL (0.0-0.4); BILIRUBIN,TOTAL 0.5 mg/dL (0.2-1.3); BLOOD UREA NITROGEN 15 mg/dL (7-20); CALCIUM 8.9 mg/dL (8.4-10.2); CARBON DIOXIDE 29 mmol/L (22-30); CHLORIDE 98 mmol/L (98-107); GLUCOSE 110 mg/dL (75-110); POTASSIUM 3.5 mmol/L (3.6-5.0); TOTAL PROTEIN 6.9 g/dL (6.3-8.2)
[2019-08-26] MEDS: MORPHINE SULFATE 10 MG/ML INJ IV PRN ×2 (07:55→11:56)
--- NOTE | 2019-08-26 08:13 | PDOC PROGRESS REPORT ---
Subjective Progress Note for:: 08/26/19 Subjective:: Mild pains primarily in the lower abdomen likely due to the prolonged laparoscopic procedure with muscle stretching Reason For Visit: CHOLELITHIASIS,ACUTE CHOLECYSTITIS,DIABETES Physical Exam Vital Signs: Temp Pulse Resp BP Pulse Ox 98.4 F 77 18 115/62 96 08/26/19 05:07 08/26/19 05:07 08/26/19 05:07 08/26/19 05:07 08/26/19 05:07 Intake & Output 08/25/19 08/26/19 08/27/19 06:59 06:59 06:59 Intake Total 1100 5350 Output Total 2610 Balance 1100 2740 Weight 100.1 kg 100 kg Exam: Less pains after surgery. Abdomen is soft SUMANTH drains about 30 cc for each side more of dark serosanguineous fluid nonbilious. Mild tenderness in both lower quadrants. Results Laboratory Results: 08/26/19 04:42 08/26/19 04:42 08/26/19 08/26/19 04:42 04:42 WBC 13.1 H RBC 3.36 L Hgb 8.7 L Hct 27.0 L MCV 80 MCH 25.9 L MCHC 32.3 RDW 14.5 H Plt Count 358 Seg Neutrophils % 86.0 H Sodium 137.5 Potassium 3.5 L Chloride 98 Carbon Dioxide 29 Anion Gap 11 BUN 15 Creatinine 0.91 Est GFR ( Amer) > 60 Glucose 110 Calcium 8.9 Total Bilirubin 0.5 AST 118 H Alkaline Phosphatase 88 Total Protein 6.9 Albumin 3.4 L 08/24/19 19:30 Clean Catch Midstream Urine Culture - Final Escherichia Coli 08/24/19 18:42 Troponin I < 0.012 Impressions: Chest X-Ray 08/24/19 18:33 IMPRESSION: NO ACUTE RADIOGRAPHIC FINDING IN THE CHEST. Abdomen/Pelvis CTA 08/24/19 19:46 IMPRESSION: 1. Scattered subtle groundglass opacification in the perihilar and lower lobes. This is nonspecific. 2.2.9 cm incidental thyroid nodule. Recommend thyroid US. Reference: J Am Eddi Radiol. 2015 Apr;12(2): 143-50. 3. Nonspecific axillary lymphadenopathy. 4. No abnormality of the thoracic aorta or great vessels. 5. Marked fatty infiltration of the liver. 6. Abnormal appearance of the gallbladder suggesting acute cholecystitis. No biliary dilatation. 7. No vascular abnormality in the chest, abdomen or pelvis. Chest/Abdomen CTA 08/24/19 19:46 IMPRESSION: 1. Scattered subtle groundglass opacification in the perihilar and lower lobes. This is nonspecific. 2.2.9 cm incidental thyroid nodule. Recommend thyroid US. Reference: J Am Eddi Radiol. 2015 Apr;12(2): 143-50. 3. Nonspecific axillary lymphadenopathy. 4. No abnormality of the thoracic aorta or great vessels. 5. Marked fatty infiltration of the liver. 6. Abnormal appearance of the gallbladder suggesting acute cholecystitis. No biliary dilatation. 7. No vascular abnormality in the chest, abdomen or pelvis. Abdomen Ultrasound 08/24/19 21:50 IMPRESSION: Cholelithiasis with thickened gallbladder wall. Negative sonographic Carcamo sign. However, given the presence of pericholecystic inflammatory stranding seen on the recent CT performed earlier the same day, these findings are most suspicious for cholecystitis. Echogenic liver, suggestive of hepatic steatosis. copyright 2011 [employer]- All Rights Reserved Assessment & Plan - Diagnosis (1) Cholelithiasis Is this a current diagnosis for this admission?: Yes (2) Diabetes mellitus type 2 in obese Is this a current diagnosis for this admission?: Yes (3) Acute cholecystitis Is this a current diagnosis for this admission?: Yes - Time Critical Time spent with patient: 15-24 minutes - Inpatient Certification Medical Necessity: Need for IV Antibiotics - Plan Summary Plan Summary: First postop day post prolonged laparoscopic cholecystectomy for acute cholecystitis. She is afebrile herWhite count still elevated but trending down. Plan is to continue IV antibiotics for the next 24 to 48 hours and monitor drainage from catheters.
[2019-08-26] MEDS: FAMOTIDINE INJ/PF 20 MG/2 ML SDV IV SCH ×2 (09:35→22:17)
[2019-08-26] MEDS: KETOROLAC TROMETHAMINE INJ/PF 30 MG/1 ML SDV IV PRN ×2 (15:04→22:17)
[2019-08-27] MEDS: MORPHINE SULFATE 10 MG/ML INJ IV PRN (01:05)
[2019-08-27] MEDS: PIPERACILLIN SODIUM/TAZOBACTAM 3.375 GM in NORMAL SALINE 100 ML IV SCH ×4 (04:20→21:25)
[2019-08-27] MEDS: KETOROLAC TROMETHAMINE INJ/PF 30 MG/1 ML SDV IV PRN ×2 (06:08→18:18)
[2019-08-27 08:01] LABS: ABSOLUTE EOSINOPHILS # (AUTO) 0.2 10^3/uL (0.0-0.6); ABSOLUTE LYMPHOCYTES (AUTO) 1.3 10^3/uL (0.5-4.7); ABSOLUTE MONOCYTES (AUTO) 0.5 10^3/uL (0.1-1.4); ABSOLUTE NEUT (AUTO) 4.6 10^3/uL (1.7-8.2); BASOPHILS % (AUTO) 0.4 % (0-2); EOSINOPHILS % (AUTO) 2.7 % (0-6); HEMATOCRIT 25.1 % (36.0-47.0); HEMOGLOBIN 8.1 g/dL (12.0-15.5); LYMPHOCYTES % (AUTO) 19.8 % (13-45); MEAN CORPUSCULAR HEMOGLOBIN 26.1 pg (27.0-33.4); MEAN CORPUSCULAR HGB CONC 32.5 g/dL (32.0-36.0); MEAN CORPUSCULAR VOLUME 80 fl (80-97); MONOCYTES % (AUTO) 7.5 % (3-13); PLATELET COUNT 348 10^3/uL (150-450); RED BLOOD COUNT 3.13 10^6/uL (3.72-5.28); RED CELL DISTRIBUTION WIDTH 14.6 % (11.5-14.0); SEGMENTED NEUTROPHILS % (AUTO) 69.6 % (42-78); TOTAL CELLS COUNTED % (AUTO) 100 %; WHITE BLOOD COUNT 6.7 10^3/uL (4.0-10.5)
[2019-08-27 08:25] LABS: ALBUMIN 3.1 g/dL (3.5-5.0); ALKALINE PHOSPHATASE 74 U/L (38-126); ANION GAP 7 (5-19); ASPARTATE AMINO TRANSFERASE 46 U/L (14-36); BILIRUBIN,TOTAL 0.4 mg/dL (0.2-1.3); BLOOD UREA NITROGEN 14 mg/dL (7-20); CALCIUM 8.5 mg/dL (8.4-10.2); CARBON DIOXIDE 29 mmol/L (22-30); CHLORIDE 100 mmol/L (98-107); GLUCOSE 91 mg/dL (75-110); POTASSIUM 3.3 mmol/L (3.6-5.0); TOTAL PROTEIN 6.2 g/dL (6.3-8.2)
[2019-08-27] MEDS: FAMOTIDINE INJ/PF 20 MG/2 ML SDV IV SCH ×2 (11:12→21:25)
--- NOTE | 2019-08-27 16:43 | PDOC PROGRESS REPORT ---
Subjective Progress Note for:: 08/27/19 Subjective:: Less pains feeling a little better Reason For Visit: ACUTE CHOLECYSTITIS S/P EXTENDED LAP CHOLECYSTEC- Physical Exam Vital Signs: Temp Pulse Resp BP Pulse Ox 99.3 F 79 17 167/77 H 99 08/27/19 14:51 08/27/19 14:51 08/27/19 14:51 08/27/19 14:51 08/27/19 14:51 Intake & Output 08/26/19 08/27/19 08/28/19 06:59 06:59 06:59 Intake Total 5350 1600 520 Output Total 2610 265 Balance 2740 1335 520 Weight 100 kg 104 kg Exam: SUMANTH drains still draining. Right drain is bilious tinged. Abdomen remains soft with minimal tenderness along the incision sites. Results Laboratory Results: 08/27/19 07:50 08/27/19 07:50 08/27/19 08/27/19 07:50 07:50 WBC 6.7 RBC 3.13 L Hgb 8.1 L Hct 25.1 L MCV 80 MCH 26.1 L MCHC 32.5 RDW 14.6 H Plt Count 348 Seg Neutrophils % 69.6 Sodium 136.4 L Potassium 3.3 L Chloride 100 Carbon Dioxide 29 Anion Gap 7 BUN 14 Creatinine 0.85 Est GFR ( Amer) > 60 Glucose 91 Calcium 8.5 Total Bilirubin 0.4 AST 46 H Alkaline Phosphatase 74 Total Protein 6.2 L Albumin 3.1 L 08/24/19 18:42 Troponin I < 0.012 Impressions: Chest X-Ray 08/24/19 18:33 IMPRESSION: NO ACUTE RADIOGRAPHIC FINDING IN THE CHEST. Abdomen/Pelvis CTA 08/24/19 19:46 IMPRESSION: 1. Scattered subtle groundglass opacification in the perihilar and lower lobes. This is nonspecific. 2.2.9 cm incidental thyroid nodule. Recommend thyroid US. Reference: J Am Eddi Radiol. 2015 Apr;12(2): 143-50. 3. Nonspecific axillary lymphadenopathy. 4. No abnormality of the thoracic aorta or great vessels. 5. Marked fatty infiltration of the liver. 6. Abnormal appearance of the gallbladder suggesting acute cholecystitis. No biliary dilatation. 7. No vascular abnormality in the chest, abdomen or pelvis. Chest/Abdomen CTA 08/24/19 19:46 IMPRESSION: 1. Scattered subtle groundglass opacification in the perihilar and lower lobes. This is nonspecific. 2.2.9 cm incidental thyroid nodule. Recommend thyroid US. Reference: J Am Eddi Radiol. 2015 Apr;12(2): 143-50. 3. Nonspecific axillary lymphadenopathy. 4. No abnormality of the thoracic aorta or great vessels. 5. Marked fatty infiltration of the liver. 6. Abnormal appearance of the gallbladder suggesting acute cholecystitis. No biliary dilatation. 7. No vascular abnormality in the chest, abdomen or pelvis. Abdomen Ultrasound 08/24/19 21:50 IMPRESSION: Cholelithiasis with thickened gallbladder wall. Negative sonographic Carcamo sign. However, given the presence of pericholecystic inflammatory stranding seen on the recent CT performed earlier the same day, these findings are most suspicious for cholecystitis. Echogenic liver, suggestive of hepatic steatosis. copyright 2010 [employer]- All Rights Reserved Assessment & Plan - Diagnosis (1) Cholelithiasis Is this a current diagnosis for this admission?: Yes (2) Diabetes mellitus type 2 in obese Is this a current diagnosis for this admission?: Yes (3) Acute cholecystitis Is this a current diagnosis for this admission?: Yes - Time Critical Time spent with patient: 15-24 minutes - Inpatient Certification Medical Necessity: Need For IV Fluids, Need for IV Antibiotics - Plan Summary Plan Summary: Postop day #2 post laparoscopic cholecystectomy for acute calculus cholecystitis and difficult laparoscopic cholecystectomy. The plan is to leave the dressings on and monitor the drainage as well as white count and liver functions. At this time all the lab studies are trending to normal except the hemoglobin is around 8.1. Continue IV antibiotics and follow-up LFTs and CBC Anticipate discharge in 24 to 48 hours.
[2019-08-27] MEDS ORDERED: DEXTROSE 50%-WATER 25 GM/50 ML DISP.SYRIN IV PRN ×2 (22:23)
[2019-08-27] MEDS ORDERED: DEXTROSE 40% GEL 15 GM TUBE PO PRN ×2 (22:23)
[2019-08-27] MEDS ORDERED: GLUCAGON,HUMAN RECOMB 1 MG INJ SUBCUT PRN (22:23)
[2019-08-28] MEDS: PIPERACILLIN SODIUM/TAZOBACTAM 3.375 GM in NORMAL SALINE 100 ML IV SCH ×2 (02:54→09:32)
[2019-08-28] MEDS: KETOROLAC TROMETHAMINE INJ/PF 30 MG/1 ML SDV IV PRN ×2 (02:54→14:28)
[2019-08-28 07:54] LABS: ABSOLUTE EOSINOPHILS # (AUTO) 0.2 10^3/uL (0.0-0.6); ABSOLUTE MONOCYTES (AUTO) 0.4 10^3/uL (0.1-1.4); ABSOLUTE NEUT (AUTO) 4.9 10^3/uL (1.7-8.2); BASOPHILS % (AUTO) 0.6 % (0-2); HEMATOCRIT 26.1 % (36.0-47.0); HEMOGLOBIN 8.6 g/dL (12.0-15.5); LYMPHOCYTES % (AUTO) 15.7 % (13-45); MEAN CORPUSCULAR HGB CONC 32.9 g/dL (32.0-36.0); MEAN CORPUSCULAR VOLUME 79 fl (80-97); MONOCYTES % (AUTO) 6.8 % (3-13); PLATELET COUNT 378 10^3/uL (150-450); RED BLOOD COUNT 3.31 10^6/uL (3.72-5.28); RED CELL DISTRIBUTION WIDTH 14.5 % (11.5-14.0); SEGMENTED NEUTROPHILS % (AUTO) 73.9 % (42-78); TOTAL CELLS COUNTED % (AUTO) 100 %; WHITE BLOOD COUNT 6.6 10^3/uL (4.0-10.5)
[2019-08-28 08:17] LABS: ALBUMIN 3.4 g/dL (3.5-5.0); ALKALINE PHOSPHATASE 79 U/L (38-126); ANION GAP 6 (5-19); ASPARTATE AMINO TRANSFERASE 54 U/L (14-36); BILIRUBIN,TOTAL 0.4 mg/dL (0.2-1.3); BLOOD UREA NITROGEN 11 mg/dL (7-20); CALCIUM 8.9 mg/dL (8.4-10.2); CARBON DIOXIDE 30 mmol/L (22-30); CHLORIDE 101 mmol/L (98-107); GLUCOSE 98 mg/dL (75-110); POTASSIUM 3.5 mmol/L (3.6-5.0); TOTAL PROTEIN 6.6 g/dL (6.3-8.2)
[2019-08-28] MEDS: FAMOTIDINE INJ/PF 20 MG/2 ML SDV IV SCH (09:32)
--- NOTE | 2019-08-28 11:06 | RADIOLOGY REPORT (SQ) ---
EXAM DESCRIPTION: NM HIDA SCAN IMAGES COMPLETED DATE/TIME: 08/28/2019 10:45 am REASON FOR STUDY: Rule out biliary leak post laparoscopic cholecyste COMPARISON: Ultrasound of the abdomen from 08/24/2019. RADIONUCLIDE AND DOSE: DOSAGE RADIONUCLIDE: 5.27 millicuries Tc99m Mebrofenin. DOSAGE MORPHINE: None required. The route of agent administration: Intravenous TECHNIQUE: Serial static planar images of the right upper quadrant were obtained in the AP projectio n up 60 minutes post injection of the radionuclide. At 60 minutes a static image of the right upper quadrant in the right lateral projection was obtained. LIMITATIONS: None. FINDINGS: Status post cholecystectomy. There is prompt uptake and excretion of the radiotracer by t he hepatic parenchyma with transient visualization of the intra and extrahepatic bile ducts. There i s activity within the lumen of the bowel within 15 minutes of injection of the radiotracer. There is no spillage of the radiotracer. IMPRESSION: No scintigraphic evidence of a biliary leak. TECHNICAL DOCUMENTATION: JOB ID: [id number] 2010 [employer]- All Rights Reserved Reading location - IP/workstation name: [email or web address]
--- NOTE | 2019-08-28 11:29 | PDOC DISCHARGE SUMMARY ---
General - Admit/Disc Date/PCP Admission Date/Primary Care Provider: 08/26/19 11:00 CALIN BRUNNER NP Discharge Date: 08/28/19 - Discharge Diagnosis Final Diagnosis: Acute cholecystitis Cholelithiasis - Assessment Summary: Patient admitted on 08/24/2019 for acute cholecystitis and cholelithiasis. Underwent laparoscopic cholecystectomy on 08/25/2019. Operation was quite difficult because of patient's obesity and gallbladder being markedly thickened with stones. Patient gradually improved. However her LFTs were slightly elevated postoperatively but later was trending down. The drainage also was slightly bilious and therefore HIDA scan was done the day of discharge 7 noted to be normal. All the drains were then removed and patient discharged. - Additional Information Resuscitation Status: Full Code Discharge Diet: Regular Discharge Activity: Activity As Tolerated Referrals: [facility] [Provider Group] - 09/04/19 1:15 pm Home Medications: Alprazolam [Xanax 0.5 mg Tablet] 0.5 mg PO BIDP PRN 12/01/13 Atorvastatin Calcium [Lipitor] 80 mg PO DAILY 08/25/19 Cholecalciferol (Vitamin D3) [Vitamin D3 1000 Unit Tablet] 2,000 units PO DAILY 08/25/19 Omeprazole 40 mg PO ACP PRN 08/25/19 History of Present Illiness History of Present Illness: KITA GARCIA is a 49 year old female who has been complaining of epigastric and substernal pains with nausea for the past 3 days. Complains of some chills and vomiting 3 days ago. She denies any dysuria. Denies any cough. Denies any definite fatty food intolerance since he claims she eats fatty food every day. Hospital Course Hospital Course: Patient admitted on 08/24/2019 and had laparoscopic cholecystectomy on 08/25/2019 for acute calculus cholecystitis. Postoperatively patient did gradually improve though her liver enzymes slightly elevated but trending down just before discharge. Her drains also slightly bilious and therefore a HIDA scan was done on the day of discharge which was normal. Patient to be followed in the clinic in about 2weeks. Physical Exam Vital Signs: Temp Pulse Resp BP Pulse Ox 98.7 F 68 19 137/75 H 97 08/28/19 07:33 08/28/19 07:33 08/28/19 07:33 08/28/19 07:33 08/28/19 07:33 Intake & Output 08/27/19 08/28/19 08/29/19 06:59 06:59 06:59 Intake Total 1600 1180 100 Output Total 265 380 Balance 1335 800 100 Weight 104 kg 105.1 kg Exam: On admission was tender in the epigastric and right upper quadrant areas Results Laboratory Results: WBC 6.6 10^3/uL (4.0-10.5) 08/28/19 07:27 RBC 3.31 10^6/uL (3.72-5.28) L 08/28/19 07:27 Hgb 8.6 g/dL (12.0-15.5) L 08/28/19 07:27 Hct 26.1 % (36.0-47.0) L 08/28/19 07:27 MCV 79 fl (80-97) L 08/28/19 07:27 MCH 26.0 pg (27.0-33.4) L 08/28/19 07:27 MCHC 32.9 g/dL (32.0-36.0) 08/28/19 07:27 RDW 14.5 % (11.5-14.0) H 08/28/19 07:27 Plt Count 378 10^3/uL (150-450) 08/28/19 07:27 Lymph % (Auto) 15.7 % (13-45) 08/28/19 07:27 [place] % (Auto) 6.8 % (3-13) 08/28/19 07:27 Eos % (Auto) 3.0 % (0-6) 08/28/19 07:27 Baso % (Auto) 0.6 % (0-2) 08/28/19 07:27 Absolute Neuts (auto) 4.9 10^3/uL (1.7-8.2) 08/28/19 07:27 Absolute Lymphs (auto) 1.0 10^3/uL (0.5-4.7) 08/28/19 07:27 Absolute Monos (auto) 0.4 10^3/uL (0.1-1.4) 08/28/19 07:27 Absolute Eos (auto) 0.2 10^3/uL (0.0-0.6) 08/28/19 07:27 Absolute Basos (auto) 0.0 10^3/uL (0.0-0.2) 08/28/19 07:27 Total Counted 100 08/24/19 18:42 Seg Neutrophils % 73.9 % (42-78) 08/28/19 07:27 Seg Neuts % (Manual) 90 % (42-78) H 08/24/19 18:42 Lymphocytes % (Manual) 7 % (13-45) L 08/24/19 18:42 Monocytes % (Manual) 3 % (3-13) 08/24/19 18:42 Eosinophils % (Manual) 0 % (0-6) 08/24/19 18:42 Basophils % (Manual) 0 % (0-2) 08/24/19 18:42 Abs Neuts (Manual) 17.6 10^3/uL (1.7-8.2) H 08/24/19 18:42 Abs Lymphs (Manual) 1.4 10^3/uL (0.5-4.7) 08/24/19 18:42 Abs Monocytes (Manual) 0.6 10^3/uL (0.1-1.4) 08/24/19 18:42 Absolute Eos (Manual) 0.0 10^3/uL (0.0-0.6) 08/24/19 18:42 Abs Basophils (Manual) 0.0 10^3/uL (0.0-0.2) 08/24/19 18:42 Platelet Comment ADEQUATE 08/24/19 18:42 Poikilocytosis SLIGHT 08/24/19 18:42 Anisocytosis SLIGHT 08/24/19 18:42 Microcytosis SLIGHT 08/24/19 18:42 Ovalocytes SLIGHT 08/24/19 18:42 Sodium 137.4 mmol/L (137-145) 08/28/19 07:27 Potassium 3.5 mmol/L (3.6-5.0) L 08/28/19 07:27 Chloride 101 mmol/L (98-107) 08/28/19 07:27 Carbon Dioxide 30 mmol/L (22-30) 08/28/19 07:27 Anion Gap 6 (5-19) 08/28/19 07:27 BUN 11 mg/dL (7-20) 08/28/19 07:27 Creatinine 0.78 mg/dL (0.52-1.25) 08/28/19 07:27 Est GFR ( Amer) > 60 (>60) 08/28/19 07:27 Est GFR (MDRD) Non-Af > 60 (>60) 08/28/19 07:27 Glucose 98 mg/dL (75-110) 08/28/19 07:27 Calcium 8.9 mg/dL (8.4-10.2) 08/28/19 07:27 Total Bilirubin 0.4 mg/dL (0.2-1.3) 08/28/19 07:27 Direct Bilirubin 0.0 mg/dL (0.0-0.4) 08/28/19 07:27 Neonat Total Bilirubin Not Reportable 08/28/19 07:27 Neonat Direct Bilirubin Not Reportable 08/28/19 07:27 Neonat Indirect Bili Not Reportable 08/28/19 07:27 AST 54 U/L (14-36) H 08/28/19 07:27 ALT 77 U/L (<35) H 08/28/19 07:27 Alkaline Phosphatase 79 U/L (38-126) 08/28/19 07:27 Troponin I < 0.012 ng/mL 08/24/19 18:42 Total Protein 6.6 g/dL (6.3-8.2) 08/28/19 07:27 Albumin 3.4 g/dL (3.5-5.0) L 08/28/19 07:27 Lipase 67.2 U/L (23-300) 08/24/19 18:42 Urine Color RED 08/24/19 19:30 Urine Appearance TURBID 08/24/19 19:30 Urine pH 5.0 (5.0-9.0) 08/24/19 19:30 Ur Specific [place] 1.031 08/24/19 19:30 Urine Protein 100 mg/dL (NEGATIVE) H 08/24/19 19:30 Urine Glucose (UA) NEGATIVE mg/dL (NEGATIVE) 08/24/19 19:30 Urine Ketones NEGATIVE mg/dL (NEGATIVE) 08/24/19 19:30 Urine Blood LARGE (NEGATIVE) H 08/24/19 19:30 Urine Nitrite (Reflex) NEGATIVE (NEGATIVE) 08/24/19 19:30 Urine Bilirubin NEGATIVE (NEGATIVE) 08/24/19 19:30 Urine Urobilinogen 4.0 mg/dL (<2.0) H 08/24/19 19:30 Leukocyte Esterase Rfl TRACE (NEGATIVE) H 08/24/19 19:30 Urine RBC (Auto) >182 /HPF 08/24/19 19:30 Urine Bacteria (Auto) 3+ /HPF 08/24/19 19:30 Urine WBC (Reflex) 4 /HPF 08/24/19 19:30 Urine Mucus (Auto) MANY /LPF 08/24/19 19:30 Urine Ascorbic Acid 20 (NEGATIVE) H 08/24/19 19:30 SARS-CoV-2 (PCR) NEGATIVE (NEGATIVE) 08/24/19 23:00 08/24/19 18:42 Troponin I < 0.012 Impressions: Chest X-Ray 08/24/19 18:33 IMPRESSION: NO ACUTE RADIOGRAPHIC FINDING IN THE CHEST. Abdomen/Pelvis CTA 08/24/19 19:46 IMPRESSION: 1. Scattered subtle groundglass opacification in the perihilar and lower lobes. This is nonspecific. 2.2.9 cm incidental thyroid nodule. Recommend thyroid US. Reference: J Am Eddi Radiol. 2014;12(2): 143-50. 3. Nonspecific axillary lymphadenopathy. 4. No abnormality of the thoracic aorta or great vessels. 5. Marked fatty infiltration of the liver. 6. Abnormal appearance of the gallbladder suggesting acute cholecystitis. No biliary dilatation. 7. No vascular abnormality in the chest, abdomen or pelvis. Chest/Abdomen CTA 08/24/19 19:46 IMPRESSION: 1. Scattered subtle groundglass opacification in the perihilar and lower lobes. This is nonspecific. 2.2.9 cm incidental thyroid nodule. Recommend thyroid US. Reference: J Am Eddi Radiol. 2014;12(2): 143-50. 3. Nonspecific axillary lymphadenopathy. 4. No abnormality of the thoracic aorta or great vessels. 5. Marked fatty infiltration of the liver. 6. Abnormal appearance of the gallbladder suggesting acute cholecystitis. No biliary dilatation. 7. No vascular abnormality in the chest, abdomen or pelvis. Abdomen Ultrasound 08/24/19 21:50 IMPRESSION: Cholelithiasis with thickened gallbladder wall. Negative sonographic Carcamo sign. However, given the presence of pericholecystic inflammatory stranding seen on the recent CT performed earlier the same day, these findings are most suspicious for cholecystitis. Echogenic liver, suggestive of hepatic steatosis. copyright 2010 [employer]- All Rights Reserved Hepatobiliary Scan Nuclear Medicine 08/28/19 08:00 IMPRESSION: No scintigraphic evidence of a biliary leak. Plan Health Concerns: Patient advised to severe any fever or increasing pains in to call the clinic right away or to the ED. Plan of Treatment: Had laparoscopic cholecystectomy Goals: Back to normal self with avoidance of fatty food more for her obesity Time Spent: Less than 30 Minutes
[2019-08-28 12:06] VITALS: BP 105/61
[2019-08-28] MEDS ORDERED: BISACODYL 10 MG SUPP.RECT PR ONE (13:15)
--- NOTE | 2019-09-12 02:05 | PDOC H&P ---
History of Present Illness Admission Date/PCP: 08/24/2019 Patient complains of: abdominal pains History of Present Illness: KITA GARCIA is a 49 year old female who has been complaining of epigastric and substernal pains with nausea for the past 3 days. Complains of some chills and vomiting 3 days ago. She denies any dysuria. Denies any cough. Denies any definite fatty food intolerance since he claims she eats fatty food every day. Past Medical History Cardiac Medical History: Reports: Coronary Artery Disease - cholesterol, Hyperlipidema Denies: Myocardial Infarction, Hypertension Pulmonary Medical History: Denies: Asthma, Bronchitis, Chronic Obstructive Pulmonary Disease (COPD), Pneumonia Neurological Medical History: Denies: Seizures Endocrine Medical History: Reports: Diabetes Mellitus Type 2 Musculoskeltal Medical History: Denies: Arthritis Psychiatric Medical History: Reports: Depression Hematology: Reports: Anemia Infectious Medical History: Reports: Methicillin-Resistant Staph Aureus Past Surgical History Past Surgical History: Denies: Hysterectomy Social History Smoking Status: Never Smoker Electronic Cigarette use?: No Frequency of Alcohol Use: None Hx Recreational Drug Use: No Drugs: None Hx Prescription Drug Abuse: No - Advance Directive Resuscitation Status: Full Code Family History Family History: Arthritis, CAD, CVA, DM, Hyperlipidemia, Hypertension, Malignancy Parental Family History Reviewed: Yes Children Family History Reviewed: No Sibling(s) Family History Reviewed.: No Medication/Allergy Home Medications: Alprazolam [Xanax 0.5 mg Tablet] 0.5 mg PO BIDP PRN 12/01/13 Atorvastatin Calcium [Lipitor] 80 mg PO DAILY 08/25/19 Cholecalciferol (Vitamin D3) [Vitamin D3 1000 Unit Tablet] 2,000 units PO DAILY 08/25/19 Omeprazole 40 mg PO ACP PRN 08/25/19 Hydrocodone/Acetaminophen [[place] 5-325 mg Tablet] 1 tab PO Q6H PRN #15 tablet 09/01/19 Allergies/Adverse Reactions: No Known Allergies Allergy (Verified 08/24/19 18:28) Review of Systems Constitutional: PRESENT: as per HPI Gastrointestinal: PRESENT: abdominal pain, nausea, vomiting Neurological: PRESENT: focal weakness Physical Exam Vital Signs: Temp Pulse Resp BP Pulse Ox 98.4 F 80 16 105/61 98 08/28/19 12:02 08/28/19 12:02 08/28/19 12:02 08/28/19 12:02 08/28/19 12:02 General appearance: PRESENT: morbidly obese, severe distress Eye exam: PRESENT: conjunctiva pink Mouth exam: PRESENT: dry mucosa Respiratory exam: PRESENT: clear to auscultation azam Cardiovascular exam: PRESENT: RRR Pulses: PRESENT: normal radial pulses Vascular exam: PRESENT: normal capillary refill Rectal exam: PRESENT: deferred Skin exam: PRESENT: normal color, warm Results Laboratory Results: 08/28/19 07:27 08/28/19 07:27 08/24/19 18:42 Troponin I < 0.012 Impressions: Chest X-Ray 08/24/19 18:33 IMPRESSION: NO ACUTE RADIOGRAPHIC FINDING IN THE CHEST. Abdomen/Pelvis CTA 08/24/19 19:46 IMPRESSION: 1. Scattered subtle groundglass opacification in the perihilar and lower lobes. This is nonspecific. 2.2.9 cm incidental thyroid nodule. Recommend thyroid US. Reference: J Am Eddi Radiol. 2014;12(2): 143-50. 3. Nonspecific axillary lymphadenopathy. 4. No abnormality of the thoracic aorta or great vessels. 5. Marked fatty infiltration of the liver. 6. Abnormal appearance of the gallbladder suggesting acute cholecystitis. No biliary dilatation. 7. No vascular abnormality in the chest, abdomen or pelvis. Chest/Abdomen CTA 08/24/19 19:46 IMPRESSION: 1. Scattered subtle groundglass opacification in the perihilar and lower lobes. This is nonspecific. 2.2.9 cm incidental thyroid nodule. Recommend thyroid US. Reference: J Am Eddi Radiol. 2014;12(2): 143-50. 3. Nonspecific axillary lymphadenopathy. 4. No abnormality of the thoracic aorta or great vessels. 5. Marked fatty infiltration of the liver. 6. Abnormal appearance of the gallbladder suggesting acute cholecystitis. No biliary dilatation. 7. No vascular abnormality in the chest, abdomen or pelvis. Abdomen Ultrasound 08/24/19 21:50 IMPRESSION: Cholelithiasis with thickened gallbladder wall. Negative sonographic Carcamo sign. However, given the presence of pericholecystic inflammatory stranding seen on the recent CT performed earlier the same day, these findings are most suspicious for cholecystitis. Echogenic liver, suggestive of hepatic steatosis. copyright 2011 [employer]- All Rights Reserved Hepatobiliary Scan Nuclear Medicine 06/05/20 08:00 IMPRESSION: No scintigraphic evidence of a biliary leak. Assessment & Plan - Diagnosis (1) Cholelithiasis Is this a current diagnosis for this admission?: Yes (2) Diabetes mellitus type 2 in obese Is this a current diagnosis for this admission?: Yes (3) Acute cholecystitis Is this a current diagnosis for this admission?: Yes - Time Time Spent: 30 to 50 Minutes - Inpatient Certification Medical Necessity: Need For IV Fluids, Need for Pain Control, Need for IV Antibiotics, Need for Surgery - Plan Summary Plan Summary: Postop day #2 post laparoscopic cholecystectomy for acute calculus cholecystitis and difficult laparoscopic cholecystectomy. The plan is to leave the dressings on and monitor the drainage as well as white count and liver functions. At this time all the lab studies are trending to normal except the hemoglobin is around 8.1. Continue IV antibiotics and follow-up LFTs and CBC Anticipate discharge in 24 to 48 hours.
--- NOTE | 2019-09-16 14:10 | PDOC DISCHARGE SUMMARY ---
General - Admit/Disc Date/PCP Admission Date/Primary Care Provider: 08/26/19 11:00 CALIN BRUNNER NP Discharge Date: 08/28/19 - Discharge Diagnosis Final Diagnosis: Acute Gangrenous cholecystitis Cholelithiasis Diabetes Mellitus type2 - Assessment Summary: Patient admitted on 08/24/2019 for acute cholecystitis and cholelithiasis. Underwent laparoscopic cholecystectomy on 08/25/2019. Operation was quite difficult because of patient's obesity and gallbladder being markedly thickened with stones. Patient gradually improved. However her LFTs were slightly elevated postoperatively but later was trending down. The drainage also was slightly bilious and therefore HIDA scan was done the day of discharge 7 noted to be normal. All the drains were then removed and patient discharged. - Additional Information Resuscitation Status: Other Discharge Diet: Regular Discharge Activity: Activity As Tolerated Referrals: [facility] [Provider Group] - 09/04/19 1:15 pm Home Medications: Alprazolam [Xanax 0.5 mg Tablet] 0.5 mg PO BIDP PRN 12/01/13 Atorvastatin Calcium [Lipitor] 80 mg PO DAILY 08/25/19 Cholecalciferol (Vitamin D3) [Vitamin D3 1000 Unit Tablet] 2,000 units PO DAILY 08/25/19 Omeprazole 40 mg PO ACP PRN 08/25/19 Hydrocodone/Acetaminophen [Helena 5-325 mg Tablet] 1 tab PO Q6H PRN #15 tablet 09/01/19 History of Present Illiness History of Present Illness: KITA GARCIA is a 49 year old female who has been complaining of epigastric and substernal pains with nausea for the past 3 days. Complains of some chills and vomiting 3 days ago. She denies any dysuria. Denies any cough. Denies any definite fatty food intolerance since he claims she eats fatty food every day. Hospital Course Hospital Course: Patient admitted on 08/24/2019 and had laparoscopic cholecystectomy on 08/25/2019 for acute calculus cholecystitis. Postoperatively patient did gradually improve though her liver enzymes slightly elevated but trending down just before discharge. Her drains also slightly bilious and therefore a HIDA scan was done on the day of discharge which was normal. Patient to be followed in the clinic in about 2weeks. Physical Exam Vital Signs: Temp Pulse Resp BP Pulse Ox 98.4 F 80 16 105/61 98 08/28/19 12:02 08/28/19 12:02 08/28/19 12:02 08/28/19 12:02 08/28/19 12:02 General appearance: PRESENT: morbidly obese, severe distress GI/Abdominal exam: PRESENT: tenderness - RUQ Results Laboratory Results: WBC 6.6 10^3/uL (4.0-10.5) 08/28/19 07:27 RBC 3.31 10^6/uL (3.72-5.28) L 08/28/19 07:27 Hgb 8.6 g/dL (12.0-15.5) L 08/28/19 07:27 Hct 26.1 % (36.0-47.0) L 08/28/19 07:27 MCV 79 fl (80-97) L 08/28/19 07:27 MCH 26.0 pg (27.0-33.4) L 08/28/19 07:27 MCHC 32.9 g/dL (32.0-36.0) 08/28/19 07:27 RDW 14.5 % (11.5-14.0) H 08/28/19 07:27 Plt Count 378 10^3/uL (150-450) 08/28/19 07:27 Lymph % (Auto) 15.7 % (13-45) 08/28/19 07:27 Foard % (Auto) 6.8 % (3-13) 08/28/19 07:27 Eos % (Auto) 3.0 % (0-6) 08/28/19 07:27 Baso % (Auto) 0.6 % (0-2) 08/28/19 07:27 Absolute Neuts (auto) 4.9 10^3/uL (1.7-8.2) 08/28/19 07:27 Absolute Lymphs (auto) 1.0 10^3/uL (0.5-4.7) 08/28/19 07:27 Absolute Monos (auto) 0.4 10^3/uL (0.1-1.4) 08/28/19 07:27 Absolute Eos (auto) 0.2 10^3/uL (0.0-0.6) 08/28/19 07:27 Absolute Basos (auto) 0.0 10^3/uL (0.0-0.2) 08/28/19 07:27 Total Counted 100 08/24/19 18:42 Seg Neutrophils % 73.9 % (42-78) 08/28/19 07:27 Seg Neuts % (Manual) 90 % (42-78) H 08/24/19 18:42 Lymphocytes % (Manual) 7 % (13-45) L 08/24/19 18:42 Monocytes % (Manual) 3 % (3-13) 08/24/19 18:42 Eosinophils % (Manual) 0 % (0-6) 08/24/19 18:42 Basophils % (Manual) 0 % (0-2) 08/24/19 18:42 Abs Neuts (Manual) 17.6 10^3/uL (1.7-8.2) H 08/24/19 18:42 Abs Lymphs (Manual) 1.4 10^3/uL (0.5-4.7) 08/24/19 18:42 Abs Monocytes (Manual) 0.6 10^3/uL (0.1-1.4) 08/24/19 18:42 Absolute Eos (Manual) 0.0 10^3/uL (0.0-0.6) 08/24/19 18:42 Abs Basophils (Manual) 0.0 10^3/uL (0.0-0.2) 08/24/19 18:42 Platelet Comment ADEQUATE 08/24/19 18:42 Poikilocytosis SLIGHT 08/24/19 18:42 Anisocytosis SLIGHT 08/24/19 18:42 Microcytosis SLIGHT 08/24/19 18:42 Ovalocytes SLIGHT 08/24/19 18:42 Sodium 137.4 mmol/L (137-145) 08/28/19 07:27 Potassium 3.5 mmol/L (3.6-5.0) L 08/28/19 07:27 Chloride 101 mmol/L (98-107) 08/28/19 07:27 Carbon Dioxide 30 mmol/L (22-30) 08/28/19 07:27 Anion Gap 6 (5-19) 08/28/19 07:27 BUN 11 mg/dL (7-20) 08/28/19 07:27 Creatinine 0.78 mg/dL (0.52-1.25) 08/28/19 07:27 Est GFR ( Amer) > 60 (>60) 08/28/19 07:27 Est GFR (MDRD) Non-Af > 60 (>60) 08/28/19 07:27 Glucose 98 mg/dL (75-110) 08/28/19 07:27 Calcium 8.9 mg/dL (8.4-10.2) 08/28/19 07:27 Total Bilirubin 0.4 mg/dL (0.2-1.3) 08/28/19 07:27 Direct Bilirubin 0.0 mg/dL (0.0-0.4) 08/28/19 07:27 Neonat Total Bilirubin Not Reportable 08/28/19 07:27 Neonat Direct Bilirubin Not Reportable 08/28/19 07:27 Neonat Indirect Bili Not Reportable 08/28/19 07:27 AST 54 U/L (14-36) H 08/28/19 07:27 ALT 77 U/L (<35) H 08/28/19 07:27 Alkaline Phosphatase 79 U/L (38-126) 08/28/19 07:27 Troponin I < 0.012 ng/mL 08/24/19 18:42 Total Protein 6.6 g/dL (6.3-8.2) 08/28/19 07:27 Albumin 3.4 g/dL (3.5-5.0) L 08/28/19 07:27 Lipase 67.2 U/L (23-300) 08/24/19 18:42 Urine Color RED 08/24/19 19:30 Urine Appearance TURBID 08/24/19 19:30 Urine pH 5.0 (5.0-9.0) 08/24/19 19:30 Ur Specific Ledbetter 1.031 08/24/19 19:30 Urine Protein 100 mg/dL (NEGATIVE) H 08/24/19 19:30 Urine Glucose (UA) NEGATIVE mg/dL (NEGATIVE) 08/24/19 19:30 Urine Ketones NEGATIVE mg/dL (NEGATIVE) 08/24/19 19:30 Urine Blood LARGE (NEGATIVE) H 08/24/19 19:30 Urine Nitrite (Reflex) NEGATIVE (NEGATIVE) 08/24/19 19:30 Urine Bilirubin NEGATIVE (NEGATIVE) 08/24/19 19:30 Urine Urobilinogen 4.0 mg/dL (<2.0) H 08/24/19 19:30 Leukocyte Esterase Rfl TRACE (NEGATIVE) H 08/24/19 19:30 Urine RBC (Auto) >182 /HPF 08/24/19 19:30 Urine Bacteria (Auto) 3+ /HPF 08/24/19 19:30 Urine WBC (Reflex) 4 /HPF 08/24/19 19:30 Urine Mucus (Auto) MANY /LPF 08/24/19 19:30 Urine Ascorbic Acid 20 (NEGATIVE) H 08/24/19 19:30 SARS-CoV-2 (PCR) NEGATIVE (NEGATIVE) 08/24/19 23:00 08/24/19 18:42 Troponin I < 0.012 Impressions: Chest X-Ray 08/24/19 18:33 IMPRESSION: NO ACUTE RADIOGRAPHIC FINDING IN THE CHEST. Abdomen/Pelvis CTA 08/24/19 19:46 IMPRESSION: 1. Scattered subtle groundglass opacification in the perihilar and lower lobes. This is nonspecific. 2.2.9 cm incidental thyroid nodule. Recommend thyroid US. Reference: J Am Eddi Radiol. 2014;12(2): 143-50. 3. Nonspecific axillary lymphadenopathy. 4. No abnormality of the thoracic aorta or great vessels. 5. Marked fatty infiltration of the liver. 6. Abnormal appearance of the gallbladder suggesting acute cholecystitis. No biliary dilatation. 7. No vascular abnormality in the chest, abdomen or pelvis. Chest/Abdomen CTA 08/24/19 19:46 IMPRESSION: 1. Scattered subtle groundglass opacification in the perihilar and lower lobes. This is nonspecific. 2.2.9 cm incidental thyroid nodule. Recommend thyroid US. Reference: J Am Eddi Radiol. 2014;12(2): 143-50. 3. Nonspecific axillary lymphadenopathy. 4. No abnormality of the thoracic aorta or great vessels. 5. Marked fatty infiltration of the liver. 6. Abnormal appearance of the gallbladder suggesting acute cholecystitis. No biliary dilatation. 7. No vascular abnormality in the chest, abdomen or pelvis. Abdomen Ultrasound 08/24/19 21:50 IMPRESSION: Cholelithiasis with thickened gallbladder wall. Negative sonographic Carcamo sign. However, given the presence of pericholecystic inflammatory stranding seen on the recent CT performed earlier the same day, these findings are most suspicious for cholecystitis. Echogenic liver, suggestive of hepatic steatosis. copyright 2011 [employer]- All Rights Reserved Hepatobiliary Scan Nuclear Medicine 08/28/19 08:00 IMPRESSION: No scintigraphic evidence of a biliary leak. Plan Health Concerns: Patient advised to severe any fever or increasing pains in to call the clinic right away or to the ED. Plan of Treatment: Had laparoscopic cholecystectomy Goals: Back to normal self with avoidance of fatty food more for her obesity Time Spent: Less than 30 Minutes
== END 2019-08-28 15:25 | disposition home or self-care (01) | DRG 419 ==
LOC: ER 18:11 → INTOOBSV 21:50 → EH 21:50 → 4N 08-25 01:00 → OBSVTOIN 08-26 11:00
PROVIDERS: ADMIT Surgery; ATTEND Surgery
PROC: 0FT44ZZ Resection of Gallbladder, Percutaneous Endoscopic Approach (ICD-10-PCS; principal; 2019-08-25 09:30)
DX: K80.00 Calculus of gallbladder with acute cholecystitis without obstruction (principal); K82.A1 Gangrene of gallbladder in cholecystitis; E66.9 Obesity, unspecified; E11.9 Type 2 diabetes mellitus without complications; Z68.37 Body mass index [BMI] 37.0-37.9, adult
CPT/HCPCS: 36415; 71046; 71275; 74174; 76705; 78226; 790; 80053; 81001; 83690; 84484; 85025; 87070; 87075; 87086; 87088; 87186; 87205; 87635; 88304; 93005; 93010; 99285; A9537; C9803; G0378; J1100; J1170; J1885; J2250; J2270; J2310; J2405; J2543; J2704; J2710; J3010; J3490; J7030; J7050; J7121; Q9969; S0028

== ENCOUNTER 2019-08-31 22:39 | Emergency (ER) | payer OTHER ==
[2019-08-31] MEDS ORDERED: MORPHINE SULFATE 10 MG/ML INJ IV ONE (23:52)
[2019-08-31] MEDS ORDERED: NORMAL SALINE 1000 ML 1,000 ML IV ONE (23:52)
--- NOTE | 2019-08-31 23:54 | ER Document Report ---
ED General - General Chief Complaint: Post Surgical Pain Stated Complaint: POST OP PAIN, ABDOMINAL CRAMPINGS Time Seen by Provider: 08/31/19 23:42 Primary Care Provider: YOVANI MARIANO MD [ACTIVE STAFF] - 09/04/19 CALIN BRUNNER NP [Primary Care Provider] - Follow up as needed Notes: Patient is a 49-year-old female who presents emergency department with a chief complaint of surgical site pain. Patient had a cholecystectomy 6 days ago. She was discharged 3 days ago with no complications. Patient states that she has been taking her pain medication, but still reports pain to the area. She is currently taking Toradol. Patient states that the pain starts in her right upper quadrant and radiates up substernally. TRAVEL OUTSIDE OF THE [place] IN LAST 30 DAYS: No - Related Data Allergies/Adverse Reactions: No Known Allergies Allergy (Verified 08/24/19 18:28) Home Medications: Lipitor, Vit. D, Xanax Past Medical History - Social History Smoking Status: Never Smoker Frequency of alcohol use: None Drug Abuse: None Family History: Arthritis, CAD, CVA, DM, Hyperlipidemia, Hypertension, Malignancy Patient has homicidal ideation: No - Past Medical History Cardiac Medical History: Reports: Hx Coronary Artery Disease - cholesterol, Hx Hypercholesterolemia Denies: Hx Heart Attack, Hx Hypertension Pulmonary Medical History: Denies: Hx Asthma, Hx Bronchitis, Hx COPD, Hx Pneumonia Neurological Medical History: Denies: Hx Cerebrovascular Accident, Hx Seizures Endocrine Medical History: Reports: Hx Diabetes Mellitus Type 2 Renal/ Medical History: Denies: Hx Peritoneal Dialysis Musculoskeletal Medical History: Denies Hx Arthritis Skin Medical History: Reports Hx Cellulitis, Reports Hx MRSA Psychiatric Medical History: Reports: Hx Depression Infectious Medical History: Reports: Hx MRSA Past Surgical History: Denies: Hx Hysterectomy - Immunizations Immunizations up to date: Yes Hx Diphtheria, Pertussis, Tetanus Vaccination: Yes Hx Pneumococcal Vaccination: 12/23/09 Review of Systems - Review of Systems Notes: REVIEW OF SYSTEMS: CONSTITUTIONAL : Denies recent illness. Denies recent unintentional weight loss. Denies fever, chills, or sweats. EENT: Denies eye, ear, throat, or mouth pain, discharge, or symptoms. Denies nasal or sinus congestion. CARDIOVASCULAR: Denies chest pain. RESPIRATORY: Denies shortness of breath, cough, congestion, difficulty breathing, or wheezing. GASTROINTESTINAL: See HPI. GENITOURINARY: Denies difficulty urinating, burning, blood in urine, urgency or frequency. MUSCULOSKELETAL: Denies neck and back pain. Denies joint pain or swelling. SKIN: Denies rash, itchiness, or lesions HEMATOLOGIC : Denies easy bruising or bleeding. LYMPHATIC: Denies swollen, painful, enlarged glands. NEUROLOGICAL: Denies no numbness or tingling denies weakness. Denies headache. Denies altered mental status. Denies alteration in speech. PSYCHIATRIC: Denies stress, anxiety, alteration in sleep patterns, or depression. All other systems reviewed and negative. Physical Exam - Vital signs Vitals: Temp Pulse Resp BP Pulse Ox 98.6 F 91 22 H 150/91 H 94 08/31/19 22:55 08/31/19 22:55 08/31/19 22:55 08/31/19 22:55 08/31/19 22:55 - Notes Notes: PHYSICAL EXAMINATION: GENERAL: Appears obese, no acute distress. HEAD: Normocephalic, atraumatic. EYES: PERRL, conjunctiva normal, all extraocular movements intact, sclera nonicteric ENT: Moist mucous membranes. NECK: Supple, no noticeable swelling, redness, rash. Normal range of motion. LUNGS: Equal breath sounds bilaterally and clear to auscultation. No wheezes rales or rhonchi. CARDIOVASCULAR: S1-S2, regular rate, regular rhythm. Radial pulses 2+, normal. ABDOMEN: Normoactive bowel sounds. Soft, moderately tender right upper abdomen, and no masses palpated. EXTREMITIES: Normal strength and range of motion, no pitting or edema. No cyanosis. NEUROLOGICAL: Moves all extremities upon command. Strength 5/5 in all extremities. PSYCH: Normal mood, normal affect. SKIN: Warm, dry. Surgical incision noted to right upper quadrant, umbilical area, and epigastric area. Course - Re-evaluation Re-evalutation: 09/01/19 02:51 Patient has a fluid collection that is 5.5 cm noted to her gallbladder fossa. Discussed this with Dr. Mariano, the surgeon application security developer. He will evaluate the patient. Hematology does not show a leukocytosis, but there is a left shift of 85.1% neutrophils. Hemoglobin and hematocrit show anemia, but this is stable as compared to the patient's last labs drawn on August 27. Chemistries are also stable. 09/01/19 03:33 Dr. Mariano, the surgical hist evaluated the patient. States that her fluid collection is common after surgery. He wants the patient to follow-up on an outpatient basis. He also would like her to go home with narcotic pain medicine. She will follow-up with him on Saturday. Follow-up precautions were given. Verbal discharge instructions were given to the patient. They verbalized understanding. They are stable for discharge. - Vital Signs Vital signs: Temp Pulse Resp BP Pulse Ox 98.3 F 91 21 H 131/79 H 98 09/01/19 03:49 08/31/19 22:55 09/01/19 03:00 09/01/19 04:13 09/01/19 04:14 - Laboratory Result Diagrams: 09/01/19 00:06 09/01/19 00:06 Laboratory results interpreted by me: 09/01/19 09/01/19 09/01/19 00:06 00:06 01:56 RBC 3.53 L Hgb 9.3 L Hct 28.4 L MCH 26.3 L RDW 14.7 H Plt Count 474 H Lymph % (Auto) 6.7 L Absolute Neuts (auto) 8.6 H Seg Neutrophils % 85.1 H Sodium 136.9 L Potassium 3.5 L Glucose 119 H Lactic Acid 0.6 L AST 37 H ALT 64 H Discharge - Discharge Clinical Impression: Abdominal pain Qualifiers: Abdominal location: right upper quadrant Qualified Code(s): R10.11 - Right upper quadrant pain Condition: Stable Disposition: HOME, SELF-CARE Additional Instructions: You were seen today in the emergency department for postsurgical pain. Dr. Mariano evaluated you and wants you to follow-up with him this coming Saturday. You are also being sent home with Milo, pain medication. You can take 1 tablet every 4-6 hours as needed for pain. Take [id number] Colace 100 mg twice a day to help with having regular bowel movements. Prescriptions: Hydrocodone/Acetaminophen [Milo 5-325 mg Tablet] 1 tab PO Q6H PRN #15 tablet PRN Reason: Referrals: CALIN BRUNNER NP [Primary Care Provider] - Follow up as needed YOVANI MARIANO MD [ACTIVE STAFF] - 09/04/19
[2019-09-01 00:31] LABS: ABSOLUTE BASOPHILS # (AUTO) 0.1 10^3/uL (0.0-0.2); ABSOLUTE EOSINOPHILS # (AUTO) 0.1 10^3/uL (0.0-0.6); ABSOLUTE LYMPHOCYTES (AUTO) 0.7 10^3/uL (0.5-4.7); ABSOLUTE MONOCYTES (AUTO) 0.7 10^3/uL (0.1-1.4); ABSOLUTE NEUT (AUTO) 8.6 10^3/uL (1.7-8.2); BASOPHILS % (AUTO) 0.6 % (0-2); HEMATOCRIT 28.4 % (36.0-47.0); HEMOGLOBIN 9.3 g/dL (12.0-15.5); LYMPHOCYTES % (AUTO) 6.7 % (13-45); MEAN CORPUSCULAR HEMOGLOBIN 26.3 pg (27.0-33.4); MEAN CORPUSCULAR HGB CONC 32.7 g/dL (32.0-36.0); MEAN CORPUSCULAR VOLUME 80 fl (80-97); MONOCYTES % (AUTO) 6.6 % (3-13); PLATELET COUNT 474 10^3/uL (150-450); RED BLOOD COUNT 3.53 10^6/uL (3.72-5.28); RED CELL DISTRIBUTION WIDTH 14.7 % (11.5-14.0); SEGMENTED NEUTROPHILS % (AUTO) 85.1 % (42-78); TOTAL CELLS COUNTED % (AUTO) 100 %; WHITE BLOOD COUNT 10.1 10^3/uL (4.0-10.5)
[2019-09-01 00:42] LABS: ALBUMIN 3.8 g/dL (3.5-5.0); ALKALINE PHOSPHATASE 87 U/L (38-126); ANION GAP 10 (5-19); ASPARTATE AMINO TRANSFERASE 37 U/L (14-36); BILIRUBIN,TOTAL 0.3 mg/dL (0.2-1.3); BLOOD UREA NITROGEN 13 mg/dL (7-20); CALCIUM 9.2 mg/dL (8.4-10.2); CARBON DIOXIDE 25 mmol/L (22-30); CHLORIDE 102 mmol/L (98-107); GLUCOSE 119 mg/dL (75-110); POTASSIUM 3.5 mmol/L (3.6-5.0); TOTAL PROTEIN 7.5 g/dL (6.3-8.2)
--- NOTE | 2019-09-01 02:41 | RADIOLOGY REPORT (SQ) ---
CT ABDOMEN AND PELVIS WITH INTRAVENOUS CONTRAST: 09/01/2019 1:37 AM CDT HISTORY: 49-year old with right upper quadrant abdominal pain, recent cholecystectomy. COMPARISON: Ultrasound of abdomen from 04/13/2019 TECHNIQUE: Axial contiguous images were obtained from the lung bases to the proximal femurs with intravenous intravenous contrast administered. Sagittal and coronal reconstructions were also obtained and reviewed. This exam was performed according to our departmental dose-optimization program, which includes automated exposure control, adjustment of the mA and/or KV according to the patient's size and/or use of iterative reconstruction technique. FINDINGS: There are bibasilar airspace opacities without large effusions. The cardiac silhouette is enlarged. The visualized hepatic parenchyma is diffusely low in attenuation. No focal enhancing lesion is seen. The gallbladder is surgically absent. There is a hypodense fluid collection within the gallbladder fossa measuring at least 5.5 x 3.4 cm. This may represent a biliary fluid collection, infection, or a large seroma. The spleen, pancreas, and adrenals are normal in size and contour. The kidneys demonstrate no evidence of hydronephrosis. Bladder is minimally distended, but grossly appears unremarkable. The uterus is present. The stomach is not well distended. The small bowel loops appear unremarkable. No pericolonic inflammatory stranding is seen. The appendix is unremarkable. There is no evidence of pneumoperitoneum. There is some trace fluid seen at the right paracolic gutter. The aorta and IVC appear normal in size. No significantly enlarged lymph nodes are seen in the abdomen or pelvis. Review of the bone show no evidence of any suspicious lytic or blastic lesions. IMPRESSION: There is a fluid collection at the gallbladder fossa which may represent a biliary fluid collection, infection, or seroma. This measures at least 5.5 cm. Hepatic steatosis There are bibasilar space opacities present which may reflect atelectasis or infection.
[2019-09-01] MEDS ORDERED: HYDROCODONE/ACETAMINOPHEN 5-325 MG (6 TAB/ER DISP) PO PRN (03:40)
[2019-09-01 04:17] VITALS: BP 131/79
--- NOTE | 2019-09-01 09:32 | EKG REPORT ---
SEVERITY:- ABNORMAL ECG - SINUS RHYTHM PROBABLE LEFT ATRIAL ABNORMALITY LEFT VENTRICULAR HYPERTROPHY BORDERLINE T ABNORMALITIES, INFERIOR LEADS : Confirmed by: Mago Olson MD 01-Sep-2019 09:31:32
== END 2019-09-01 04:24 | disposition home or self-care (01) ==
LOC: ER 22:39
DX: R10.11 Right upper quadrant pain (principal); G89.18 Other acute postprocedural pain; Z90.49 Acquired absence of other specified parts of digestive tract; Z79.899 Other long term (current) drug therapy; I25.10 Atherosclerotic heart disease of native coronary artery without angina pectoris; E11.9 Type 2 diabetes mellitus without complications
CPT/HCPCS: 93005; 99284; 96361; 96374; 36415; 83605; 85025; 80053; 84484; 74177; 93010; J2270; J7030